=== PATIENT | female | born 1945 | race Caucasian/White ===

== ENCOUNTER 2023-01-27 06:31 | Emergency (ER) | payer BC, OTHER ==
[~2023-01-27] VITALS: Ht 165.1 cm; Wt 59.1 kg
[2023-01-27 06:36] VITALS: BP 156/77; RESP 16; O2SAT 99
[2023-01-27 07:09] VITALS: PULSE 60
[2023-01-27 07:19] LABS: Basophils # (auto) 0 10 ^3/uL (0-0.2); Basophils % (auto) 0.8 % (0.0-2.0); Eosinophils # (auto) 0.1 10 ^3/uL (0-0.8); Eosinophils % (auto) 3.2 % (0.0-7.0); Hematocrit 32.1 % (36.0-46.0); Hemoglobin 10.3 g/dL (12.2-16.2); Lymphocytes # (auto) 1.1 10 ^3/uL (0.4-5.4); Lymphocytes % (auto) 27.8 % (10.0-50.0); Mean Corpuscular Hemoglobin 28.4 pg (28.0-32.0); Mean Corpuscular Hgb Conc. 32.2 g/dL (32.0-36.0); Mean Corpuscular Volume 88.3 fL (80.0-100.0); Monocytes # (auto) 0.4 10 ^3/uL (0-1.3); Monocytes % (auto) 10.6 % (0.0-12.0); Neutrophils # (auto) 2.3 10 ^3/uL (1.6-8.6); Neutrophils % (auto) 57.6 % (37.0-80.0); Nucleated Red Blood Cells % 0.1 %; Red Blood Cells 3.64 10^6/uL (4.0-5.20); Red Cell Distribution Width 14.2 % (11.8-14.3); White Blood Cell 4.1 10^3/uL (4.4-10.8)
[2023-01-27 07:20] LABS: INR 1.08 (0.9-1.15); Partial Thromboplastin Time 26.8 SEC (24.5-34.5); Prothrombin Time 11.3 sec (9.3-11.8)
[2023-01-27 07:26] LABS: Alanine Aminotransferase 39 U/L (7-40); Albumin 3.6 g/dL (3.2-4.8); Alkaline Phosphatase 150 U/L (46-116); Anion Gap 6 (5-15); Aspartate Aminotransferase 35 U/L (13-40); Blood Urea Nitrogen 24 mg/dL (9-23); Calcium 8.5 mg/dL (8.7-10.4); Carbon Dioxide 24 mmol/L (20-30); Chloride 111 mmol/L (98-107); Glucose 85 mg/dL (74-106); Sodium 141 mmol/L (136-145)
[2023-01-27 07:27] LABS: Bilirubin, Total 1.1 mg/dL (0.2-1.0); Total Protein 5.8 g/dL (5.7-8.2)
== END 2023-01-27 08:38 | disposition left against medical advice (07) ==
LOC: ER 06:31 → EDBD 06:31 → ER 08:38
DX: R07.89 Other chest pain (principal); Z79.899 Other long term (current) drug therapy
CPT/HCPCS: 36415; 71045; 80053; 83690; 83735; 83880; 84484; 85025; 85610; 85730; 93005

== ENCOUNTER 2024-05-07 17:51 | Emergency (ER) | payer BC, OTHER ==
[~2024-05-07] VITALS: Ht 152.4 cm; Wt 68.1 kg
--- NOTE | 2024-05-07 18:07 | ECG ---
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
--- NOTE | 2024-05-07 18:48 | ED.PDOC ---
History of Present Illness HPI Comments 78 y/o F, with a Hx of dementia, is BIBA for c/o chest pain and nausea and vomiting, today. Per EMS report, patient is A&Ox1 at baseline and is reported by , who called, on patient, suddenly, experiencing chest pain and having 1x episode of vomiting, while eating dinner, at [employer]. Patient has no reported abdominal pain, hematemesis, fever, chills, or other associated symptoms or modifiers at this time. Chief Complaint: Chest Pain Time Seen by MD: 18:05 Primary Care Provider: UNKNOWN Reviewed Notes: Nurses Notes, Medications, Allergies Allergies: Coded Allergies: NO KNOWN ALLERGIES (Unverified , 01/27/23) Information Source: Emergency Med Personnel Mode of Arrival: EMS Severity: Moderate Timing: Hours Duration: Since onset Prehospital treatment: 12 Lead EKG, Bean Snipper Past Medical History PAST MEDICAL HISTORY: Dementia Surgical History: Unknown, Unobtainable ROTARY DRIER FEEDER History: Denies all ROTARY DRIER FEEDER Hx, Unknown, Unobtainable Family History Family History: Unknown, Unobtainable Social History Smoker: Unknown, Unobtainable Alcohol: Unknown, Unobtainable Drugs: Unknown, Unobtainable Lives In: Home, Assisted Care Cardiovascular: reports: chest pain Gastrointestinal: reports: nausea, vomiting All Other Systems: Reviewed and Negative (negative unless otherwise stated above or in HPI) Physical Exam General Appearance: No Apparent Distress, Normal HEENT: Normal ENT Inspection, Pharynx Normal, TMs Normal Neck: Full Range of Motion, Non-Tender, Normal, Normal Inspection Respiratory: Chest Non-Tender, Lungs Clear, No Accessory Muscle Use, No Respiratory Distress, Normal Breath Sounds Cardiovascular: No Edema, No JVD, No Murmur, No Gallop, Normal Peripheral Pulses, Regular Rate/Rhythm Breast Exam: Deferred Gastrointestinal: No Organomegaly, Non Tender, No Pulsatile Mass, Normal Bowel Sounds, Soft Genitalia: Deferred Pelvic: Deferred Rectal: Deferred Extremities: No calf tenderness, Normal capillary refill, Normal inspection, Normal range of motion, Non-tender, No pedal edema Musculoskeletal : Apperance: Normal Neurologic: Alert, test and turn up technician II-XII nml as Tested, No Motor Deficits, Normal Affect, Normal Mood, No Sensory Deficits, Other (patient is a demented at baseline ) Cerebellar Function: Normal Reflexes: Normal Skin: Dry, Normal Color, Warm Lymphatic: No Adenopathy Was a procedure done? Was a procedure done?: No EKG EKG : Pulse Rate (adult): 77 Brogan: Normal Cardiac Rhythm: NSR Block: None Hypertrophy: None ST: Normal Differential Dx Considerations may include: IN, ACS, PE, viral syndrome, gastritis, gastroenteritis, angina, musculoskeletal pain X-Ray, Labs, Meds, VS Vital Signs Date Time Temp Pulse Resp B/P (MAP) Pulse Ox O2 Delivery O2 Flow Rate FiO2 05/07/24 18:48 77 05/07/24 18:00 77 05/07/24 17:58 97.8 74 15 145/75 (98) 99 Lab Test 05/07/24 19:40 05/07/24 18:48 Range/Units Troponin I High Sensitivity 8 8 </=34 ng/L White Blood Count 5.2 4.4-10.8 10^3/uL Red Blood Count 3.80 L 4.0-5.20 10^6/uL Hemoglobin 10.7 L 12.2-16.2 g/dL Hematocrit 33.5 L 36.0-46.0 % Mean Corpuscular Volume 88.3 80.0-100.0 fL Mean Corpuscular Hemoglobin 28.2 28.0-32.0 pg Mean Corpuscular Hemoglobin Concent 31.9 L 32.0-36.0 g/dL Red Cell Distribution Width 15.8 H 11.8-14.3 % Platelet Count 314 140-450 10^3/uL Mean Platelet Volume 8.9 6.9-10.8 fL Neutrophils (%) (Auto) 64.7 37.0-80.0 % Lymphocytes (%) (Auto) 21.4 10.0-50.0 % Monocytes (%) (Auto) 9.6 0.0-12.0 % Eosinophils (%) (Auto) 3.6 0.0-7.0 % Basophils (%) (Auto) 0.7 0.0-2.0 % Neutrophils # (Auto) 3.4 1.6-8.6 10 ^3/uL Lymphocytes # (Auto) 1.1 0.4-5.4 10 ^3/uL Monocytes # (Auto) 0.5 0-1.3 10 ^3/uL Eosinophils # (Auto) 0.2 0-0.8 10 ^3/uL Basophils # (Auto) 0 0-0.2 10 ^3/uL Nucleated Red Blood Cells 0.1 % Sodium Level 138 136-145 mmol/L Potassium Level 4.0 3.5-5.1 mmol/L Chloride Level 106 98-107 mmol/L Carbon Dioxide Level 26 20-31 mmol/L Anion Gap 6 5-15 Blood Urea Nitrogen 23 9-23 mg/dL Creatinine 1.01 0.550-1.02 mg/dL Glomerular Filtration Rate Calc 58 >90 mL/min BUN/Creatinine Ratio 22.8 H 10.0-20.0 Serum Glucose 95 74-106 mg/dL Calcium Level 9.1 8.7-10.4 mg/dL Total Bilirubin 0.5 0.2-1.0 mg/dL Aspartate Amino Transferase (AST) 23 13-40 U/L Alanine Aminotransferase (ALT) 24 7-40 U/L Alkaline Phosphatase 166 H 46-116 U/L Total Protein 5.6 L 5.7-8.2 g/dL Albumin 3.2 3.2-4.8 g/dL First troponin is eight. Second troponin is eight. EKG shows no signs of ischemia. Time of 1ST Reevaluation: 18:35 Reevaluation 1ST: Unchanged Patient Education/Counseling: Diagnosis, Treatment Family Education/Counseling: No Family Present Departure 1 Departure Time of Disposition: 20:57 Impression: Primary Impression: Non-cardiac chest pain Disposition: 01 HOME / SELF CARE / HOMELESS Condition: Stable Additional Instructions: Reassessed patient, vital signs stable. Denies any new symptoms. Patient is able to tolerate PO and ambulate/be mobile at their baseline without concern. Risks and benefits of all medications given or prescribed, if any, discussed. All lab work, imaging and diagnostic studies were reviewed by me. The patient was counseled extensively on my clinical impression, diagnosis, expected course of the disease, and plan, including their follow-up care. Will discharge patient. Patient instructed to follow up with Primary Care Physician within 24-48 hours for Cardiology referral. Strict return precautions given for further exacerbation of symptoms or for new symptoms. The patient was given the opportunity to ask questions and all questions were answered by myself and the nursing/tech staff. Patient is in agreement with the care plan. The patient verbally expressed understanding of the discharge instructions, including the reasons to return to the Emergency Department. Discharged With: Self Critical Care Note Critical Care Time?: No Stability Stability form required: No Heart Score Heart Score: Heart Score Response (Comments) Value History Slightly Suspicious 0 EKG Normal 0 Age >65 2 Risk Factors No known risk factors 0 Troponin Normal limit 0 Total 2 I personally scribed for DAMASO LAYTON MD ([email or web address]) on 05/07/24 at 18:48. Electronically submitted by James Mtz [email or web address]). DAMASO LAYTON MD May 07, 2024 18:48
[2024-05-07 19:03] LABS: Basophils # (auto) 0 10 ^3/uL (0-0.2); Basophils % (auto) 0.7 % (0.0-2.0); Eosinophils # (auto) 0.2 10 ^3/uL (0-0.8); Eosinophils % (auto) 3.6 % (0.0-7.0); Hematocrit 33.5 % (36.0-46.0); Hemoglobin 10.7 g/dL (12.2-16.2); Lymphocytes # (auto) 1.1 10 ^3/uL (0.4-5.4); Lymphocytes % (auto) 21.4 % (10.0-50.0); Mean Corpuscular Hemoglobin 28.2 pg (28.0-32.0); Mean Corpuscular Hgb Conc. 31.9 g/dL (32.0-36.0); Mean Corpuscular Volume 88.3 fL (80.0-100.0); Monocytes # (auto) 0.5 10 ^3/uL (0-1.3); Monocytes % (auto) 9.6 % (0.0-12.0); Neutrophils # (auto) 3.4 10 ^3/uL (1.6-8.6); Neutrophils % (auto) 64.7 % (37.0-80.0); Nucleated Red Blood Cells % 0.1 %; Platelet Count (auto) 314 10^3/uL (140-450); Red Cell Distribution Width 15.8 % (11.8-14.3); White Blood Cell 5.2 10^3/uL (4.4-10.8)
[2024-05-07 19:30] LABS: Alanine Aminotransferase 24 U/L (7-40); Anion Gap 6 (5-15); Aspartate Aminotransferase 23 U/L (13-40); BUN/Creatinine Ratio 22.8 (10.0-20.0); Bilirubin, Total 0.5 mg/dL (0.2-1.0); Blood Urea Nitrogen 23 mg/dL (9-23); Calcium 9.1 mg/dL (8.7-10.4); Carbon Dioxide 26 mmol/L (20-31); Chloride 106 mmol/L (98-107); Glucose 95 mg/dL (74-106); Sodium 138 mmol/L (136-145)
[2024-05-07 19:31] LABS: Albumin 3.2 g/dL (3.2-4.8); Alkaline Phosphatase 166 U/L (46-116); Total Protein 5.6 g/dL (5.7-8.2)
[2024-05-07 22:00] VITALS: BP 119/75; TEMP 98.3
[2024-05-07 22:15] VITALS: PULSE 93; RESP 18; O2SAT 97
== END 2024-05-07 22:16 | disposition home or self-care (01) ==
LOC: EDBD 17:51 → EDUNIT# 17:51 → ER 17:55
DX: R07.89 Other chest pain (principal)
CPT/HCPCS: 36415; 80053; 84484; 85025; 93005

== ENCOUNTER 2024-06-04 16:51 | Inpatient (IN) | payer OTHER ==
[~2024-06-04] VITALS: Ht 170.2 cm; Wt 69.3 kg
--- NOTE | 2024-06-04 18:39 | DVH ---
CLINICAL INDICATION: FALL TECHNIQUE: 1 radiographic views of the pelvis were obtained. Comparison: None FINDINGS/IMPRESSION: There is no evidence of acute fracture or dislocation. The visualized joint space is well maintained. The alignment is anatomical. There is no radiopaque foreign body. HS:Y
--- NOTE | 2024-06-04 18:40 | DVH ---
CLINICAL INDICATION: FALL TECHNIQUE: 4 radiographic views of the right femur were obtained. Comparison: None FINDINGS/IMPRESSION: There is a comminuted fracture of the distal femur with minimal displacement The visualized joint space is well maintained. The alignment is anatomical. There is no radiopaque foreign body. HS:Y
[2024-06-04 19:53] LABS: Basophils # (auto) 0 10 ^3/uL (0-0.2); Basophils % (auto) 0.2 % (0.0-2.0); Eosinophils # (auto) 0 10 ^3/uL (0-0.8); Eosinophils % (auto) 0.1 % (0.0-7.0); Hemoglobin 9.6 g/dL (12.2-16.2); Lymphocytes # (auto) 0.6 10 ^3/uL (0.4-5.4); Lymphocytes % (auto) 6.4 % (10.0-50.0); Mean Corpuscular Hemoglobin 28.7 pg (28.0-32.0); Mean Corpuscular Hgb Conc. 32.9 g/dL (32.0-36.0); Mean Corpuscular Volume 87.3 fL (80.0-100.0); Monocytes # (auto) 0.7 10 ^3/uL (0-1.3); Monocytes % (auto) 6.5 % (0.0-12.0); Neutrophils # (auto) 8.8 10 ^3/uL (1.6-8.6); Neutrophils % (auto) 86.8 % (37.0-80.0); Platelet Count (auto) 282 10^3/uL (140-450); Red Blood Cells 3.33 10^6/uL (4.0-5.20); Red Cell Distribution Width 15.5 % (11.8-14.3); White Blood Cell 10.1 10^3/uL (4.4-10.8)
--- NOTE | 2024-06-04 19:54 | ED.PDOC ---
History of Present Illness HPI Comments 78 y/o F, with a history of CVA and dementia, is BIBA for c/o right hip and leg pain s/p mechanical fall and injury, today. Per EMS report, patient is stated to have injured herself after tripping, while walking at a [employer] restaurant, earlier, today. She is stated to have not sustained any additional injuries or LOC then. At time of initial assessment, further history cannot be obtained, due to patient having dementia and insecticide expert/family historians being absent. Chief Complaint: Fall Injury Time Seen by MD: 19:30 Primary Care Provider: ? Reviewed Notes: Nurses Notes, Fibrous Plasterer Notes, Medications, Allergies Allergies: Coded Allergies: NO KNOWN ALLERGIES (Unverified , 01/27/23) Information Source: Emergency Med Personnel Mode of Arrival: EMS Severity: Moderate Timing: Hours Duration: Since onset Prehospital treatment: 12 Lead EKG, Internal Medicine Doctor Past Medical History PAST MEDICAL HISTORY: CVA, Dementia Surgical History: Denies all surgeries PROFESSOR OF BUSINESS History: Denies all PROFESSOR OF BUSINESS Hx Family History Family History: Unknown, Unobtainable Social History Smoker: Non-Smoker Alcohol: Denies ETOH Use Drugs: Denies Drug Use Lives In: Home, Assisted Care Musculoskeletal: reports: others (right-hip and leg pain ) All Other Systems: Reviewed and Negative (negative unless otherwise stated above in HPI) Physical Exam General Appearance: No Apparent Distress, Normal HEENT: Normal ENT Inspection, Pharynx Normal, TMs Normal Neck: Full Range of Motion, Non-Tender, Normal, Normal Inspection Respiratory: Chest Non-Tender, Lungs Clear, No Accessory Muscle Use, No Respiratory Distress, Normal Breath Sounds Cardiovascular: No Edema, No JVD, No Murmur, No Gallop, Normal Peripheral Pulses, Regular Rate/Rhythm Breast Exam: Deferred Gastrointestinal: No Organomegaly, Non Tender, No Pulsatile Mass, Normal Bowel Sounds, Soft Genitalia: Deferred Pelvic: Deferred Rectal: Deferred Extremities: No calf tenderness, Normal capillary refill, Normal inspection, Normal range of motion, No pedal edema, Tender (rigth lower extremity tenderness ) Musculoskeletal : Apperance: Normal Neurologic: Alert, forgeman helper II-XII nml as Tested, No Motor Deficits, Normal Affect, Normal Mood, No Sensory Deficits Cerebellar Function: Normal Reflexes: Normal Skin: Dry, Normal Color, Warm Lymphatic: No Adenopathy Was a procedure done? Was a procedure done?: No Sedation Informed consent obtained: No Differential Dx Considerations may include: fractures, dislocations, contusions, bruising X-Ray, Labs, Meds, VS Vital Signs Date Time Temp Pulse Resp B/P (MAP) Pulse Ox O2 Delivery O2 Flow Rate FiO2 06/04/24 20:10 89 21 99 Room Air* 0 21 06/04/24 20:10 98.0 89 21 174/60 (98) 99 98.0 06/04/24 17:10 97.7 87 20 170/82 (111) 100 Lab Test 06/04/24 19:45 Range/Units White Blood Count 10.1 4.4-10.8 10^3/uL Red Blood Count 3.33 L 4.0-5.20 10^6/uL Hemoglobin 9.6 L 12.2-16.2 g/dL Hematocrit 29.0 L 36.0-46.0 % Mean Corpuscular Volume 87.3 80.0-100.0 fL Mean Corpuscular Hemoglobin 28.7 28.0-32.0 pg Mean Corpuscular Hemoglobin Concent 32.9 32.0-36.0 g/dL Red Cell Distribution Width 15.5 H 11.8-14.3 % Platelet Count 282 140-450 10^3/uL Mean Platelet Volume 8.6 6.9-10.8 fL Neutrophils (%) (Auto) 86.8 H 37.0-80.0 % Lymphocytes (%) (Auto) 6.4 L 10.0-50.0 % Monocytes (%) (Auto) 6.5 0.0-12.0 % Eosinophils (%) (Auto) 0.1 0.0-7.0 % Basophils (%) (Auto) 0.2 0.0-2.0 % Neutrophils # (Auto) 8.8 H 1.6-8.6 10 ^3/uL Lymphocytes # (Auto) 0.6 0.4-5.4 10 ^3/uL Monocytes # (Auto) 0.7 0-1.3 10 ^3/uL Eosinophils # (Auto) 0 0-0.8 10 ^3/uL Basophils # (Auto) 0 0-0.2 10 ^3/uL Nucleated Red Blood Cells 0.0 % Sodium Level 137 136-145 mmol/L Potassium Level 3.5 3.5-5.1 mmol/L Chloride Level 105 98-107 mmol/L Carbon Dioxide Level 19 L 20-31 mmol/L Anion Gap 13 5-15 Blood Urea Nitrogen 27 H 9-23 mg/dL Creatinine 0.90 0.550-1.02 mg/dL Glomerular Filtration Rate Calc 66 >90 mL/min BUN/Creatinine Ratio 30.0 H 10.0-20.0 Serum Glucose 102 74-106 mg/dL Calcium Level 8.4 L 8.7-10.4 mg/dL Current Medications Medications (Trade) Dose Ordered Sig/Jude Route Start Time Stop Time Status Last Admin Morphine Sulfate 4 mg ONCE ONCE IV 06/04/24 19:45 06/04/24 19:46 DC 06/04/24 22:45 Sodium Chloride 1,000 ml @ 1,000 mls/hr Q1H ONCE IV 06/04/24 19:45 06/04/24 20:44 DC 06/04/24 22:52 Ondansetron HCl (Zofran) 4 mg ONCE ONCE IV 06/04/24 19:45 06/04/24 19:46 DC 06/04/24 22:44 Hydralazine HCl (Apresoline Injection) 10 mg ONCE ONCE IV 06/04/24 22:00 06/04/24 22:01 DC 06/04/24 22:45 [place] [address] Ph: [phone] DIAGNOSTIC IMAGING Diagnostic Imaging Report : [id number] Signed PATIENT: ENEIDA MACEDO ACCT: [id number] UNIT: [id number] : 1945 LOC: ER ROOM / BED: / AGE / SEX: 78 / F ADM STATUS: REG ER SERVICE 1801 ORDERING PHYSICIAN: AMANDA JACKSON MD PROCEDURE(s): PELVS - PELVIS AP REASON: FALL ORDER NUMBER(s): [id number], ACCESSION NUMBER(s): [id number] CLINICAL INDICATION: FALL TECHNIQUE: 1 radiographic views of the pelvis were obtained. Comparison: None FINDINGS/IMPRESSION: There is no evidence of acute fracture or dislocation. The visualized joint space is well maintained. The alignment is anatomical. There is no radiopaque foreign body. HS:Y ATED BY: LYNETTE TYSON Jr., DO DICTATED DATE/TIME: 06/04/241835 SIGNED BY: LYNETTE TYSON Jr., DO SIGNED DATE/TIME: 06/04/241835 CC: [place] [id number] Ph: [phone] DIAGNOSTIC IMAGING Diagnostic Imaging Report : [id number] Signed PATIENT: ENEDIA MACEDO ACCT: [id number] UNIT: [id number] : 1945 LOC: ER ROOM / BED: / AGE / SEX: 78 / F ADM STATUS: REG ER SERVICE 00 ORDERING PHYSICIAN: AMANDA JACKSON MD PROCEDURE(s): RFEM - R FEMUR XRAY REASON: FALL ORDER NUMBER(s): [id number], ACCESSION NUMBER(s): [id number] CLINICAL INDICATION: FALL TECHNIQUE: 4 radiographic views of the right femur were obtained. Comparison: None FINDINGS/IMPRESSION: There is a comminuted fracture of the distal femur with minimal displacement The visualized joint space is well maintained. The alignment is anatomical. There is no radiopaque foreign body. HS:Y ATED BY: LYNETTE TYSON Jr., DO DICTATED DATE/TIME: 06/04/241836 SIGNED BY: LYNETTE TYSON Jr., DO SIGNED DATE/TIME: 06/04/241836 CC: [place] [id number] Ph: [phone] DIAGNOSTIC IMAGING Diagnostic Imaging Report : [id number] Signed PATIENT: ENEIDA MACEDO ACCT: [id number] UNIT: [id number] : 1945 LOC: ER ROOM / BED: / AGE / SEX: 78 / F ADM STATUS: REG ER SERVICE 34 ORDERING PHYSICIAN: DAISY AYERS MD PROCEDURE(s): CXRP - CHEST PORTABLE REASON: fall ORDER NUMBER(s): [id number], ACCESSION NUMBER(s): [id number] CHEST RADIOGRAPH Indication: fall Technique: Single frontal view of the chest was obtained COMPARISON: XY CHEST PORTABLE on DOS: 01/27/23 FINDINGS: Lines and Tubes: None Lungs: Clear Pleura: No effusion. No pneumothorax. Cardiomediastinal contours: Unremarkable IMPRESSION: No acute abnormality identified. No significant change compared to the prior chest x-ray from January 2023. ATED BY: DAR FLOREZ MD DICTATED DATE/TIME: 06/04/242119 SIGNED BY: DAR FLOREZ MD SIGNED DATE/TIME: 06/04/242119 CC: [place] [id number] Ph: [phone] DIAGNOSTIC IMAGING Diagnostic Imaging Report : [id number] Signed PATIENT: ENEIDA MACEDO ACCT: [id number] UNIT: [id number] : 1945 LOC: OVERFLOW ROOM / BED: [facility] / A AGE / SEX: 78 / F ADM STATUS: ADM IN SERVICE 55 ORDERING PHYSICIAN: ALONSO SYED RESIDENT PROCEDURE(s): HWOCT - HEAD WITHOUT CONTRAST REASON: Mechanical fall ORDER NUMBER(s): [id number], ACCESSION NUMBER(s): [id number] CT HEAD WITHOUT CONTRAST INDICATION: Mechanical fall COMPARISON: None TECHNIQUE: CT of the head without intravenous contrast. RADIATION DOSE: CTDIvol: mGy, DLP: mGy*cm FINDINGS: There is no evidence of intracranial hemorrhage, acute infarct, extra-axial collection, mass effect, midline shift, herniation or hydrocephalus. Mild chronic white matter microvascular ischemic changes. Moderate ventricular and sulcal enlargement related to advanced cerebral volume loss. Visualized paranasal sinuses and mastoid air cells are clear. Soft tissues and osseous structures are unremarkable. IMPRESSION: No hemorrhage or other acute intracranial abnormality. Microvascular ischemic changes and advanced cerebral volume loss. ATED BY: DAR FLOREZ MD DICTATED DATE/TIME: 06/04/242238 SIGNED BY: DAR FLOREZ MD SIGNED DATE/TIME: 06/04/242238 CC: Time of 1ST Reevaluation: 20:00 Reevaluation 1ST: Unchanged Patient Education/Counseling: Other (patient has dementia ) Family Education/Counseling: No Family Present Departure 1 Departure Time of Disposition: 06:05 (Patient's right femur fracture. We will admit patient for further workup and expert consultation) Impression: Primary Impression: Right femoral shaft fracture Qualified Codes: S72.354A - Nondisplaced comminuted fracture of shaft of right femur, initial encounter for closed fracture Disposition: ADMITTED INPATIENT Admit to: Med Surg Condition: Serious Critical Care Note Critical Care Time?: No Stability Stability form required: No Heart Score Heart Score: Heart Score Response (Comments) Value History N/A 0 EKG N/A 0 Age N/A 0 Risk Factors N/A 0 Troponin N/A 0 Total 0 I personally scribed for DAISY AYERS MD ([email or web address]) on 06/04/24 at 19:54. Electronically submitted by James Mtz [email or web address]). I personally scribed for DAISY AYERS MD ([email or web address]) on 06/05/24 at 05:31. Electronically submitted by James Mtz [email or web address]). DAISY AYERS MD Jun 04, 2024 19:54
[2024-06-04 19:59] LABS: Chloride 105 mmol/L (98-107); Potassium 3.5 mmol/L (3.5-5.1); Sodium 137 mmol/L (136-145)
[2024-06-04 20:00] LABS: Anion Gap 13 (5-15)
[2024-06-04 20:05] LABS: Glucose 102 mg/dL (74-106)
[2024-06-04 20:07] LABS: Blood Urea Nitrogen 27 mg/dL (9-23); Calcium 8.4 mg/dL (8.7-10.4); Carbon Dioxide 19 mmol/L (20-31)
[2024-06-04 20:10] VITALS: PULSE 89; RESP 21; O2SAT 99
--- NOTE | 2024-06-04 21:23 | DVH ---
CHEST RADIOGRAPH Indication: fall Technique: Single frontal view of the chest was obtained COMPARISON: XY CHEST PORTABLE on DOS: 01/27/23 FINDINGS: Lines and Tubes: None Lungs: Clear Pleura: No effusion. No pneumothorax. Cardiomediastinal contours: Unremarkable IMPRESSION: No acute abnormality identified. No significant change compared to the prior chest x-ray from January 2023.
--- NOTE | 2024-06-04 22:11 | DVHHPRES ---
History of Present Illness Resident Creating Document: ALONSO SYED RESIDENT History of Present Illness Xena Lyle is 78 years old female with severe dementia, CVA, aphasia presented to the ED by EMS after mechanical fall without LOC today. Patient is altered due to dementia which is her baseline so history obtained from the her daughter from phone, per her daughter today patient and patient's went to a restaurant, she tripped and fell and did not hit her head and no loss of consciousness, patient unable to get off and crying with the pain right hip, called EMS. Daughter denies recent fever, vomiting, diarrhea, chest pain, diaphoresis, syncope and other acute associated symptoms. PMH: CVA, aphasia, dementia, anemia PSH: Gastric bypass Family history: Noncontributory Social history: Lives with family. Former smoker stopped 30 years ago, no active smoking, alcohol and other drug abuse Allergies: No known allergies Home medications: Multivitamin tablets Review of Systems Review of Systems Unable to obtain ROS due to patient's clinical status Allergies: Coded Allergies: NO KNOWN ALLERGIES (Unverified , 01/27/23) Medications Current Medications Medications Dose Ordered Sig/Jude Route Start Time Stop Time Status Last Admin Dose Admin Sodium Chloride 10 ml Q8HR IV 06/05/24 06:00 UNV Sodium Chloride 1,000 ml @ 60 mls/hr [id number] IV 06/04/24 22:15 UNV Enoxaparin Sodium 40 mg DAILY SC 06/05/24 10:00 UNV Acetaminophen 650 mg Q6HP PRN PO 06/04/24 22:15 UNV Morphine Sulfate 2 mg Q4HPRN PRN IV 06/04/24 22:15 UNV Nitroglycerin 0.4 mg Q5MINP PRN SL 06/04/24 22:15 UNV Morphine Sulfate 2 mg Q30M PRN IV 06/04/24 22:15 UNV Exam Vital Signs Vital Signs Date Time Temp Pulse Resp B/P (MAP) Pulse Ox O2 Delivery O2 Flow Rate FiO2 06/04/24 17:10 97.7 87 20 170/82 (111) 100 Exam Pt is lying on bed General Appearance: Confused, aphasic, mild distress HEENT: Atraumatic, Mucous membranes moist/pink Respiratory: Clear to auscultation, Normal air movement Cardiovascular: Regular rate, Normal S1, Normal S2, No murmurs Abdominal: Active bowel sounds, Soft, no distention, no tenderness Extremities: Right lower extremity shortened, tender at hip joint to movements, no edema Skin: No Significant rash, except past surgical scars Neuro: Normal speech, sensorimotor deficits none Psych/Mental Status: Mental status NL, Mood NL Nurse was there as sharperone during examination Labs/Xrays Labs Test 06/04/24 19:45 Range/Units White Blood Count 10.1 4.4-10.8 10^3/uL Red Blood Count 3.33 L 4.0-5.20 10^6/uL Hemoglobin 9.6 L 12.2-16.2 g/dL Hematocrit 29.0 L 36.0-46.0 % Mean Corpuscular Volume 87.3 80.0-100.0 fL Mean Corpuscular Hemoglobin 28.7 28.0-32.0 pg Mean Corpuscular Hemoglobin Concent 32.9 32.0-36.0 g/dL Red Cell Distribution Width 15.5 H 11.8-14.3 % Platelet Count 282 140-450 10^3/uL Mean Platelet Volume 8.6 6.9-10.8 fL Neutrophils (%) (Auto) 86.8 H 37.0-80.0 % Lymphocytes (%) (Auto) 6.4 L 10.0-50.0 % Monocytes (%) (Auto) 6.5 0.0-12.0 % Eosinophils (%) (Auto) 0.1 0.0-7.0 % Basophils (%) (Auto) 0.2 0.0-2.0 % Neutrophils # (Auto) 8.8 H 1.6-8.6 10 ^3/uL Lymphocytes # (Auto) 0.6 0.4-5.4 10 ^3/uL Monocytes # (Auto) 0.7 0-1.3 10 ^3/uL Eosinophils # (Auto) 0 0-0.8 10 ^3/uL Basophils # (Auto) 0 0-0.2 10 ^3/uL Nucleated Red Blood Cells 0.0 % Sodium Level 137 136-145 mmol/L Potassium Level 3.5 3.5-5.1 mmol/L Chloride Level 105 98-107 mmol/L Carbon Dioxide Level 19 L 20-31 mmol/L Anion Gap 13 5-15 Blood Urea Nitrogen 27 H 9-23 mg/dL Creatinine 0.90 0.550-1.02 mg/dL Glomerular Filtration Rate Calc 66 >90 mL/min BUN/Creatinine Ratio 30.0 H 10.0-20.0 Serum Glucose 102 74-106 mg/dL Calcium Level 8.4 L 8.7-10.4 mg/dL Assessment/Plan Assessment/Plan # mechanical fall without LOC # H/o CVA # H/o dementia sequela from CVA # 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 -ordered head CT, showed chronic microvascular changes -measures to avoid delirium -pain management as needed # Right distal femur comminuted fracture minimal displacement -evident on femur x-ray -consulted orthopedic -physical therapy and pain management # Acute complicated UTI - evident on urinalysis - ordered urine bacterial culture - currently giving Rocephin # Hypokalemia - Repleting - Monitor lab # chronic normocytic, normochromic anemia -monitor lab for now Protonix Lovenox NPO Goals of care discussed with the patient's family for more than 29 minutes: Full code status Case discussed with Dr. Gaston, patient and nurse Plan discussed with: Daughter My Orders Orders - ALONSO SYED RESIDENT Procedure Category Date Status Time Head Without Contrast CT 06/04/24 Logged 21:56 Admit ADMIT 06/04/24 Transmitted 22:03 Allergies ADELINE 06/04/24 In Process 22:03 Code Status CODE 06/04/24 Transmitted 22:03 Sodium Chloride Lock PHA 06/05/24 Logged (Saline Lock Ns) 06:00 Sodium Chloride 0.9% PHA 06/04/24 Logged 22:15 Enoxaparin Sodium PHA 06/05/24 Logged (Lovenox) 10:00 Complete Blood Count LAB 06/05/24 Verified 04:00 Comprehensive LAB 06/05/24 Verified Metabolic Panel 04:00 Npo (Nothing By DIET 06/05/24 Transmitted Mouth) Diet Breakfast Condition: Fair ADELINE 06/04/24 In Process 22:03 Acetaminophen Tablet PHA 06/04/24 Logged (Tylenol Tablet) 22:15 Morphine Sulfate PHA 06/04/24 Logged Injection 22:15 Nitroglycerin PHA 06/04/24 Logged Sublingual (Ntrostat 22:15 Morphine Sulfate PHA 06/04/24 Logged Injection 22:15 Oxygen By Nasal RT 06/04/24 Transmitted Cannula 22:03 Stat Ekg For Chest ADELINE 06/04/24 In Process Pain 22:03 Notify Md Of Changes ADELINE 06/04/24 In Process From Base 22:03 Hepatic Panel LAB 06/04/24 Logged 22:03 B-Type Natriuretic LAB 06/04/24 Logged Peptide 22:03 Ammonia LAB 06/04/24 Logged 22:03 Blood Alcohol LAB 06/04/24 Logged 22:03 Comprehensive LAB 06/04/24 Logged Metabolic Panel 22:03 Covid19 Antigen Andra LAB 06/04/24 Logged Drug Screen LAB 06/04/24 Logged 22:03 Hemoglobin A1c LAB 06/04/24 Logged 22:03 Lactic Acid W/ Reflex LAB 06/04/24 Logged Order 22:03 Magnesium LAB 06/04/24 Logged 22:03 PTPTT LAB 06/04/24 Logged 22:03 Rapid Influenza A&B LAB 06/04/24 Logged 22:03 Thyroid Stimulating LAB 06/04/24 Logged Hormone 22:03 Urinalysis LAB 06/04/24 Logged 22:03 Pt Request For Service PT 06/04/24 Logged 22:03 * Orthopedic Consult CONS 06/04/24 Transmitted 22:03 Pantoprazole PHA 06/05/24 Transmitted (Protonix) 10:00 Date of Service: Jun 04, 2024 Billing Provider: MARIELY GASTON MD Common Visit Codes: [id number] INP/OBS CARE (HIGH) Secondary Visit Codes: [id number] CARE PLAN 30 MINUTES YAHAIRALANDONDAMON RESIDENT Jun 04, 2024 22:11 MARIELY GASTON MD Jun 05, 2024 10:33
[2024-06-04] MEDS ORDERED: MORPHINE SULFATE INJ 2 MG/ml SYRG IV PRN (22:15)
[2024-06-04] MEDS ORDERED: ACETAMINOPHEN 325 MG TAB PO PRN (22:15)
[2024-06-04] MEDS ORDERED: NITROGLYCERIN 0.4 MG SL TAB SL PRN (22:15)
--- NOTE | 2024-06-04 22:42 | DVH ---
CT HEAD WITHOUT CONTRAST INDICATION: Mechanical fall COMPARISON: None TECHNIQUE: CT of the head without intravenous contrast. RADIATION DOSE: CTDIvol: mGy, DLP: mGy*cm FINDINGS: There is no evidence of intracranial hemorrhage, acute infarct, extra-axial collection, mass effect, midline shift, herniation or hydrocephalus. Mild chronic white matter microvascular ischemic changes . Moderate ventricular and sulcal enlargement related to advanced cerebral volume loss. Visualized pa ranasal sinuses and mastoid air cells are clear. Soft tissues and osseous structures are unremarkabl e. IMPRESSION: No hemorrhage or other acute intracranial abnormality. Microvascular ischemic changes and advanced ce rebral volume loss.
[2024-06-04] MEDS: ONDANSETRON HCL 4 MG/2 ML VIAL IV ONE (22:44)
[2024-06-04] MEDS: hydrALAZINE HCL 20 MG/ML VL IV ONE (22:45)
[2024-06-04] MEDS: MORPHINE SULFATE 4 MG/ML SYR/VIAL IV ONE (22:45)
[2024-06-04] MEDS: SODIUM CHLORIDE 0.9% 1,000 ML IV SCH (22:52)
[2024-06-04] MEDS: SODIUM CHLORIDE 0.9% 1,000 ML IV ONE (22:52)
[2024-06-04 22:55] LABS: INR 1.04 (0.9-1.15)
[2024-06-04 22:56] LABS: Alanine Aminotransferase 22 U/L (7-40); Albumin 3.3 g/dL (3.2-4.8); Anion Gap 11 (5-15); Aspartate Aminotransferase 21 U/L (13-40); BUN/Creatinine Ratio 29.9 (10.0-20.0); Carbon Dioxide 21 mmol/L (20-31); Chloride 105 mmol/L (98-107); Glucose 104 mg/dL (74-106); Magnesium 1.9 mg/dL (1.6-2.6); Sodium 137 mmol/L (136-145); Total Protein 5.8 g/dL (5.7-8.2)
[2024-06-04 22:57] LABS: Bilirubin, Total 0.8 mg/dL (0.2-1.0)
[2024-06-04 23:02] LABS: Alkaline Phosphatase 146 U/L (46-116); Bilirubin, Direct 0.4 mg/dL (<0.3); Blood Urea Nitrogen 26 mg/dL (9-23); Calcium 8.4 mg/dL (8.7-10.4)
[2024-06-04 23:34] LABS: COVID19 ANTIGEN SOFIA FIA NEGATIVE (NEGATIVE); Rapid Influenza A Negative (Negative); Rapid Influenza B Negative (Negative)
[2024-06-04 23:40] LABS: Blood Alcohol < 3.0 mg/dL (<10)
[2024-06-05 00:14] LABS: Urine Bacteria MOD /hpf (None Seen); Urine Blood Negative /uL (Negative); Urine Clarity Clear (Clear); Urine Color Yellow (Yellow); Urine Hyaline Cast FEW /lpf (0 - 2); Urine Mucus FEW (None Seen); Urine Protein, UAD TRACE (Negative); Urine Specific Gravity 1.025 (1.001-1.035); Urine Squamous Epithelial Cell FEW /hpf (<5); Urine Urobilinogen Normal (Negative); Urine WBC 4 /HPF (0-5); Urine pH 5.5 (5.0-9.0)
[2024-06-05 00:17] LABS: Opiate Scree,Urine Neg (NEGATIVE)
[2024-06-05 00:26] LABS: Amphetamine Screen, Urine Neg (NEGATIVE); Barbiturate Scree,Urine Neg (NEGATIVE); Benzodiazephine Screen, Urine Neg (NEGATIVE); Cannabinoid Screen, Urine Neg (NEGATIVE); Cocaine Screen, Urine Neg (NEGATIVE); Phencyclidine Screen, Urine Neg (NEGATIVE)
[2024-06-05 01:00] VITALS: BP 144/63; PULSE 129; RESP 22; TEMP 98.7; O2SAT 90
[2024-06-05] MEDS: MORPHINE SULFATE INJ 2 MG/ml SYRG IV PRN (01:30)
[2024-06-05] MEDS: cefTRIAXone 1GM/50ML D5W 50 ML IV ONE (02:26)
[2024-06-05] MEDS: POTASSIUM CHL 20MEQ/100ML 100 ML IV SCH ×2 (02:59→07:00)
[2024-06-05 04:06] LABS: Basophils # (auto) 0 10 ^3/uL (0-0.2); Basophils % (auto) 0.3 % (0.0-2.0); Eosinophils # (auto) 0 10 ^3/uL (0-0.8); Hematocrit 27.9 % (36.0-46.0); Hemoglobin 9.1 g/dL (12.2-16.2); Lymphocytes # (auto) 0.7 10 ^3/uL (0.4-5.4); Lymphocytes % (auto) 7.7 % (10.0-50.0); Mean Corpuscular Hemoglobin 28.3 pg (28.0-32.0); Mean Corpuscular Hgb Conc. 32.6 g/dL (32.0-36.0); Mean Corpuscular Volume 86.7 fL (80.0-100.0); Monocytes # (auto) 0.8 10 ^3/uL (0-1.3); Monocytes % (auto) 8.2 % (0.0-12.0); Neutrophils # (auto) 7.8 10 ^3/uL (1.6-8.6); Neutrophils % (auto) 83.8 % (37.0-80.0); Platelet Count (auto) 277 10^3/uL (140-450); Red Blood Cells 3.22 10^6/uL (4.0-5.20); Red Cell Distribution Width 15.1 % (11.8-14.3); White Blood Cell 9.3 10^3/uL (4.4-10.8)
[2024-06-05 04:17] LABS: Alanine Aminotransferase 23 U/L (7-40); Anion Gap 10 (5-15); Aspartate Aminotransferase 20 U/L (13-40); BUN/Creatinine Ratio 33.8 (10.0-20.0); Carbon Dioxide 21 mmol/L (20-31); Glucose 102 mg/dL (74-106); Sodium 139 mmol/L (136-145)
[2024-06-05 04:18] LABS: Bilirubin, Total 0.6 mg/dL (0.2-1.0)
[2024-06-05 04:21] LABS: Albumin 3.1 g/dL (3.2-4.8); Alkaline Phosphatase 134 U/L (46-116); Blood Urea Nitrogen 24 mg/dL (9-23); Chloride 108 mmol/L (98-107); Total Protein 5.5 g/dL (5.7-8.2)
--- NOTE | 2024-06-05 05:20 | ECG ---
[facility] Test Date: 2024-06-05 Test Time: 02:16:45 Pat Name: ENEIDA MACEDO Department: ED Room: 0291T Gender: F Supervisor [place]: LUBA : 1945 Requested By: ALONSO SYED Order Number: [id number] Reading MD: Michael Merino Measurements Intervals Stella Rate: 126 P: 73 VT: 156 QRS: 50 QRSD: 86 T: 20 QT: 311 QTc: 451 Interpretive Statements Sinus tachycardia Multiple ventricular premature complexes Low voltage, precordial leads Borderline T abnormalities, inferior leads Electronically Signed On 06-10-2024 17:09:11 PST by Michael Merino Please click the below link to view image of tracing.
[2024-06-05] MEDS: ONDANSETRON HCL 4 MG/2 ML VIAL IV PRN (05:46)
[2024-06-05] MEDS: SODIUM CHLOR 0.9% PF (SALINE LOCK) 10ML VIAL/SYR IV SCH (06:00)
--- NOTE | 2024-06-05 08:31 | DVH ---
EXAM: XY R FOOT 2 VIEW XRAY CLINICAL INDICATION: right knee fracture TECHNIQUE: XY R FOOT 2 VIEW XRAY Comparison: None FINDINGS/IMPRESSION: There is no evidence of acute fracture or dislocation. The visualized joint space is well maintained. The alignment is anatomical. There is no radiopaque foreign body.
--- NOTE | 2024-06-05 09:09 | DVHPNRES ---
Progress Note Date Seen: Jun 05, 2024 Resident Creating Document: HELENA VERAS RESIDENT Medical Necessity Reason Pt with a Central, PICC or Fol: No Subjective Review of Systems Patient is a 78-year-old female with past medical history of CVA with residual aphasia, TIA, dementia who came in after sustaining a mechanical fall. Patient is AO x2 at baseline with aphasia and is unable to provide accurate history. Per patient's daughter, patient ambulates at baseline, however she has been having a shuffling gait for the last 6 months with minor falls. Yesterday she was visiting a restaurant with her when she fell down to her knees, denies any loss of consciousness, denies hitting her head.. Right femur x-ray showed a comminuted fracture of the distal femur with minimal displacement. Orthopedic surgery was consulted. Past surgical history: Cholecystectomy, gastric bypass surgery Home medications: Vitamins only Past Hospitalization: 2 weeks ago ER visit for chest pain which patient was told was noncardiac Social & Personal history: Patient lives with her . Allergies: Denies Patient seen and examined at bedside. Patient is unable to communicate effectively, review of systems could not be completed accurately. Objective vital signs Vital Sign Date Time Temp Pulse Resp B/P (MAP) Pulse Ox O2 Delivery O2 Flow Rate FiO2 06/05/24 06:17 107 19 142/60 06/05/24 06:00 98 06/05/24 00:16 97.9 97.9 06/04/24 20:10 Room Air* 0 21 Total Intake and Output 06/04/24 06/04/24 06/05/24 15:00 23:00 07:00 Intake Total 1680 ml Balance 1680 ml medications Current Medications Medications Dose Ordered Sig/Jude Route Start Time Stop Time Status Last Admin Dose Admin Sodium Chloride 10 ml Q8HR IV 06/05/24 06:00 Sodium Chloride 1,000 ml @ 60 mls/hr [id number] IV 06/04/24 22:15 06/04/24 22:52 60 MLS/HR Enoxaparin Sodium 40 mg DAILY SC 06/05/24 10:00 Acetaminophen 650 mg Q6HP PRN PO 06/04/24 22:15 Morphine Sulfate 2 mg Q4HPRN PRN IV 06/04/24 22:15 06/05/24 05:48 2 MG Nitroglycerin 0.4 mg Q5MINP PRN SL 06/04/24 22:15 Morphine Sulfate 2 mg Q30M PRN IV 06/04/24 22:15 Pantoprazole Sodium 40 mg DAILY IV 06/05/24 10:00 Ceftriaxone Sodium 50 ml @ 100 mls/hr DAILY@09 IV 06/06/24 09:00 Ondansetron HCl 4 mg Q6HPRN PRN IV 06/05/24 02:15 06/05/24 05:46 4 MG Potassium Chloride 100 ml @ 50 mls/hr Q2H IV 06/05/24 07:00 06/05/24 12:59 Examination General Appearance: Well developed. Well nourished. In moderate distress Head Exam: Normal inspection Neck Exam: Normal inspection. Non-tender. Normal alignment Pulmonary/Respiratory: Chest non-tender. Clear bilateral breath sounds, no crackles, no wheezing. Cardiovascular/Chest: Regular rate and rhythm. No murmurs. No JVD. Peripheral Pulses: 2+ Radial (R). 2+ Radial (L). 2+ Pedal (R). 2+ Pedal (L) Abdominal Exam: Normal bowel sounds. Soft. normal abdomen, no visible veins, Nontender. No hepatospenomegaly. No masses Lower extremities: Negative lower extremity edema. Patient is able to move her toes but unable to dorsiflex or plantar flex. Sensations intact. Right hip tenderness to palpation. Neuro/Mental Status: A&O x4. Coherent. Thoughts/Psych: Normal thought pattern. Appropriate mood and affect. Good judgement and insight Skin Exam: Normal inspection. Normal color. Warm. Dry laboratory and microbiology Laboratory Tests 06/05/24 03:36 Test 06/05/24 03:36 Range/Units Serum Glucose 102 74-106 mg/dL Labs and/or images reviewed: Labs reviewed by me, Image(s) reviewed by me Problem List/Assessment/Plan Problem List/Assessment/Plan S/p mechanical fall Comminuted fracture of distal femur with minimal displacement - head CT: No hemorrhage or other acute intracranial abnormality. Microvascular ischemic changes and advanced cerebral volume loss. - femur x-ray: There is a comminuted fracture of the distal femur with minimal displacement. The visualized joint space is well maintained. The alignment is anatomical. There is no radiopaque foreign body. - pelvis x-ray: There is no evidence of acute fracture or dislocation. The visualized joint space is well maintained. The alignment is anatomical. There is no radiopaque foreign body. - CXR: No acute abnormality identified. No significant change compared to the prior chest x-ray from January 2023. - foot x-ray: There is no evidence of acute fracture or dislocation. The visualized joint space is well maintained. The alignment is anatomical. There is no radiopaque foreign body. - orthopedic surgery consulted; patient will likely undergo surgery with metal zoran placement - EKG: Sinus tachycardia. Multiple ventricular premature complexes. Low voltage precordial leads. Borderline T abnormalities. - IV NS at 60 cc/hour Acute complicated UTI - IV ceftriaxone Hypokalemia - repleted Aphasia, possibly Wernicke's? Dementia - monitor PUD prophylaxis: protonix 40mg DVT prophylaxis: Levonox 40mg Goals of care: Full code, discussed with patient's daughter for >16 minutes on 06/05/[address] Dozier Plan discussed with: Patient, Daughter, Other (RN) Date of Service: Jun 05, 2024 Billing Provider: PAPITO DOZIRE MD Common Visit Codes: [id number] INP/OBS CARE(HIGH) HELENA VERAS RESIDENT Jun 05, 2024 09:09 PAPITO DOZIER MD Jun 06, 2024 16:22
[2024-06-05] MEDS: PANTOPRAZOLE 40 MG/10 ML VIAL INJ IV SCH (10:32)
[2024-06-05] MEDS: ENOXAPARIN SOD 40 MG/0.4 ML SYRINGE SC SCH (10:32)
[2024-06-05 11:03] LABS: Free T4 (Free Thyroxine) 0.84 ng/dL (0.89-1.76)
[2024-06-05 11:28] LABS: T3 Total 1.13 ng/mL (0.60-1.81)
[2024-06-05] MEDS ORDERED: MIDAZOLAM HCL 2MG/2ML 2ml VIAL (1mg/ml) ONE (11:46)
[2024-06-05] MEDS ORDERED: SODIUM CHLORIDE LOCK 10 ML ONE (11:46)
[2024-06-05] MEDS ORDERED: PROPOFOL 10 MG/ML 20 ML IV ONE (11:46)
[2024-06-05] MEDS ORDERED: LIDOCAINE 1% INJ PF 5ML AMP ONE (11:46)
[2024-06-05] MEDS ORDERED: ONDANSETRON HCL 4 MG/2 ML VIAL ONE (11:46)
[2024-06-05] MEDS ORDERED: fentaNYL CITRATE 100 MCG/2 ML VL ONE (11:46)
[2024-06-05] MEDS: Lidocaine/Epinephrine 1%-1:100,000 30ML VL ONE (12:13)
[2024-06-05] MEDS: BUPIVACAINE 0.5% MPF INJ 30ML SDV IJ ONE (12:14)
[2024-06-05] MEDS: BUPIVACAINE 0.5% P/F INJ 10 ML VIAL ONE (12:21)
[2024-06-05] MEDS ORDERED: MORPHINE SULFATE INJ 2 MG/ml SYRG IV PRN (12:30)
[2024-06-05] MEDS: KETOROLAC TROMETH 30 MG/ML 1ML VIAL IV ONE (12:30)
[2024-06-05] MEDS ORDERED: MORPHINE SULFATE 4 MG/ML SYR/VIAL IV PRN (12:30)
[2024-06-05] MEDS ORDERED: HYDROmorphone HCL 2 MG/ML VL/or syr IV PRN ×2 (12:30)
[2024-06-05] MEDS: ONDANSETRON HCL 4 MG/2 ML VIAL IV ONE (12:30)
--- NOTE | 2024-06-05 12:56 | DVH ---
CLINICAL INDICATION: Displacement, trauma TECHNIQUE: 3 radiographic views of the right knee were obtained. Comparison: None FINDINGS/IMPRESSION: Displaced fracture of the distal femur. Diffuse osteopenia.
[2024-06-05] MEDS: ceFAZolin 2 GM/D5W100ml 100 ML IV ONE (13:07)
[2024-06-05 13:59] VITALS: O2SAT 94
[2024-06-05] MEDS ORDERED: ceFAZolin 1GM/50ML 50 ML IV SCH (14:00)
--- NOTE | 2024-06-05 14:39 | DVH ---
FLUOROSCOPY TIME: 29 seconds TECHNIQUE: Intraoperative radiographs of the right femur were obtained. COMPARISON: None FINDINGS: Refer to intraoperative report for further evaluation. IMPRESSION: Refer to intraoperative report for further evaluation.
--- NOTE | 2024-06-05 14:39 | DVH ---
FLUOROSCOPY TIME: 29 seconds TECHNIQUE: Intraoperative radiographs of the right femur were obtained. COMPARISON: None FINDINGS: Refer to intraoperative report for further evaluation. IMPRESSION: Refer to intraoperative report for further evaluation.
[2024-06-05] MEDS: IBUPROFEN 400 MG TAB PO SCH (16:45)
[2024-06-05 16:54] LABS: Potassium 3.6 mmol/L (3.5-5.1); Sodium 141 mmol/L (136-145)
[2024-06-05 16:55] LABS: Anion Gap 8 (5-15); Carbon Dioxide 21 mmol/L (20-31)
[2024-06-05 17:00] LABS: BUN/Creatinine Ratio 19.5 (10.0-20.0); Blood Urea Nitrogen 16 mg/dL (9-23); Glucose 93 mg/dL (74-106)
[2024-06-05 17:01] LABS: Calcium 8.1 mg/dL (8.7-10.4); Chloride 112 mmol/L (98-107)
[2024-06-05] MEDS: HYDROmorphone HCL 2 MG/ML VL/or syr IV PRN (18:10)
[2024-06-05 19:30] VITALS: PULSE 125; RESP 19; O2SAT 93
[2024-06-05 20:00] VITALS: PULSE 112; RESP 18
[2024-06-05] MEDS: ceFAZolin 1GM/50ML 50 ML IV SCH (20:57)
[2024-06-05 21:00] VITALS: BP 150/57; PULSE 125; RESP 19; TEMP 98.4; O2SAT 93
[2024-06-06] VITALS (7 sets, daily range): BP systolic 120–168; BP diastolic 60–104; PULSE 98–132; RESP 18; TEMP 98.4–99.8; O2SAT 90–95
[2024-06-06 07:14] LABS: Basophils # (auto) 0 10 ^3/uL (0-0.2); Basophils % (auto) 0.1 % (0.0-2.0); Eosinophils # (auto) 0 10 ^3/uL (0-0.8); Hematocrit 23.7 % (36.0-46.0); Hemoglobin 7.8 g/dL (12.2-16.2); Lymphocytes # (auto) 0.5 10 ^3/uL (0.4-5.4); Lymphocytes % (auto) 4.8 % (10.0-50.0); Mean Corpuscular Hemoglobin 28.9 pg (28.0-32.0); Mean Corpuscular Hgb Conc. 32.9 g/dL (32.0-36.0); Monocytes # (auto) 1.1 10 ^3/uL (0-1.3); Monocytes % (auto) 9.5 % (0.0-12.0); Neutrophils # (auto) 9.5 10 ^3/uL (1.6-8.6); Neutrophils % (auto) 85.6 % (37.0-80.0); Nucleated Red Blood Cells % 0.1 %; Platelet Count (auto) 205 10^3/uL (140-450); Red Blood Cells 2.69 10^6/uL (4.0-5.20); Red Cell Distribution Width 15.2 % (11.8-14.3); White Blood Cell 11.1 10^3/uL (4.4-10.8)
[2024-06-06 07:16] LABS: Sodium 144 mmol/L (136-145)
[2024-06-06 07:17] LABS: Anion Gap 9 (5-15); Carbon Dioxide 21 mmol/L (20-31)
[2024-06-06 07:22] LABS: BUN/Creatinine Ratio 17.6 (10.0-20.0); Blood Urea Nitrogen 15 mg/dL (9-23); Glucose 93 mg/dL (74-106)
[2024-06-06 07:33] LABS: Calcium 8.2 mg/dL (8.7-10.4); Chloride 114 mmol/L (98-107); Potassium 2.9 mmol/L (3.5-5.1)
--- NOTE | 2024-06-06 07:57 | DVHPN2 ---
Progress Note Date Seen: Jun 06, 2024 Medical Necessity Reason Pt with a Central, PICC or Fol: No Objective vital signs Vital Sign Date Time Temp Pulse Resp B/P (MAP) Pulse Ox O2 Delivery O2 Flow Rate FiO2 06/06/24 06:00 99.3 06/06/24 05:00 114 18 120/60 (80) 90 06/05/24 20:00 Room Air* 0 21 Total Intake and Output 06/05/24 06/05/24 06/06/24 15:00 23:00 07:00 Intake Total 1160 ml 0 ml Output Total 425 ml Balance 1160 ml -425 ml medications Current Medications Medications Dose Ordered Sig/Jude Route Start Time Stop Time Status Last Admin Dose Admin Sodium Chloride 10 ml Q8HR IV 06/05/24 06:00 06/06/24 06:00 10 ML Sodium Chloride 1,000 ml @ 60 mls/hr [id number] IV 06/04/24 22:15 06/05/24 14:55 60 MLS/HR Enoxaparin Sodium 40 mg DAILY SC 06/05/24 10:00 06/05/24 10:32 40 MG Acetaminophen 650 mg Q6HP PRN PO 06/04/24 22:15 Morphine Sulfate 2 mg Q4HPRN PRN IV 06/04/24 22:15 06/05/24 10:03 2 MG Nitroglycerin 0.4 mg Q5MINP PRN SL 06/04/24 22:15 Pantoprazole Sodium 40 mg DAILY IV 06/05/24 10:00 06/05/24 10:32 40 MG Ceftriaxone Sodium 50 ml @ 100 mls/hr DAILY@09 IV 06/06/24 09:00 Ondansetron HCl 4 mg Q6HPRN PRN IV 06/05/24 02:15 06/05/24 10:03 4 MG Cefazolin Sodium 50 ml @ 100 mls/hr Q8H IV 06/05/24 20:45 06/06/24 13:14 06/06/24 04:56 100 MLS/HR Ibuprofen 400 mg Q8HP PO 06/05/24 16:45 laboratory and microbiology Laboratory Tests 06/06/24 05:46 Test 06/06/24 05:46 Range/Units Serum Glucose 93 74-106 mg/dL Problem List/Assessment/Plan Problem List/Assessment/Plan 78 year old female who is s/p ORIF right distal femur POD 1 1. Pain control 2. Toe touch weight bearing only with walker 3. Physical therapy 4. plan to follow up in 2 weeks at [facility] clinic 5. clear for discharge from orthopedics standpoint 6. Dressing to remain clean, dry and intact until first postop visit 7. continue with immobilizer Plan discussed with: Patient Date of Service: Jun 06, 2024 Billing Provider: YE BYNUM MD Common Visit Codes: NOT BILLABLE FLAVIA CORDOVA NP Jun 06, 2024 07:57
[2024-06-06] MEDS: cefTRIAXone 1GM/50ML D5W 50 ML IV SCH (08:46)
[2024-06-06] MEDS ORDERED: MAGNESIUM SULFATE 1GM/100ML 100 ML IV ONE (11:15)
[2024-06-06] MEDS: IBUPROFEN 400 MG TAB PO SCH (12:15)
[2024-06-06] MEDS: ACETAMINOPHEN 325 MG TAB PO SCH (12:15)
[2024-06-06] MEDS: POTASSIUM CHL 20MEQ/100ML 100 ML IV SCH (12:48)
--- NOTE | 2024-06-06 14:24 | DVHPNRES ---
Progress Note Date Seen: Jun 06, 2024 Resident Creating Document: HELENA VERAS RESIDENT Medical Necessity Reason Pt with a Central, PICC or Fol: No Subjective Review of Systems Patient is a 78-year-old female with past medical history of CVA with residual aphasia, TIA, dementia who came in after sustaining a mechanical fall. Patient is AO x2 at baseline with aphasia and is unable to provide accurate history. Per patient's daughter, patient ambulates at baseline, however she has been having a shuffling gait for the last 6 months with minor falls. Yesterday she was visiting a restaurant with her when she fell down to her knees, denies any loss of consciousness, denies hitting her head.. Right femur x-ray showed a comminuted fracture of the distal femur with minimal displacement. Orthopedic surgery was consulted. Past surgical history: Cholecystectomy, gastric bypass surgery Home medications: Vitamins only Past Hospitalization: 2 weeks ago ER visit for chest pain which patient was told was noncardiac Social & Personal history: Patient lives with her . Allergies: Denies Patient seen and examined at bedside. Patient is unable to communicate effectively, review of systems could not be completed accurately. Patient is status post open reduction with internal fixation, postoperative day 1. PT evaluation requested Objective vital signs Vital Sign Date Time Temp Pulse Resp B/P (MAP) Pulse Ox O2 Delivery O2 Flow Rate FiO2 06/06/24 12:49 128 18 168/60 06/06/24 12:37 99.3 94 99.3 06/06/24 08:00 Room Air* 0 21 Total Intake and Output 06/05/24 06/05/24 06/06/24 15:00 23:00 07:00 Intake Total 1160 ml 0 ml Output Total 425 ml Balance 1160 ml -425 ml medications Current Medications Medications Dose Ordered Sig/Jude Route Start Time Stop Time Status Last Admin Dose Admin Sodium Chloride 10 ml Q8HR IV 06/05/24 06:00 06/06/24 06:00 10 ML Sodium Chloride 1,000 ml @ 60 mls/hr [id number] IV 06/04/24 22:15 06/05/24 14:55 60 MLS/HR Enoxaparin Sodium 40 mg DAILY SC 06/05/24 10:00 06/06/24 08:46 40 MG Morphine Sulfate 2 mg Q4HPRN PRN IV 06/04/24 22:15 06/06/24 12:49 2 MG Pantoprazole Sodium 40 mg DAILY IV 06/05/24 10:00 06/06/24 08:46 40 MG Ceftriaxone Sodium 50 ml @ 100 mls/hr DAILY@09 IV 06/06/24 09:00 06/06/24 08:46 100 MLS/HR Ondansetron HCl 4 mg Q6HPRN PRN IV 06/05/24 02:15 06/05/24 10:03 4 MG Potassium Chloride 100 ml @ 50 mls/hr Q2H IV 06/06/24 08:00 06/06/24 13:59 06/06/24 12:48 50 MLS/HR Acetaminophen 650 mg Q8H PO 06/06/24 12:15 Ibuprofen 400 mg Q8H PO 06/06/24 12:15 Acetaminophen/ Hydrocodone Bitart 1 tab Q8HPRN PRN PO 06/06/24 12:15 Examination General Appearance: Well developed. Well nourished. In moderate distress Head Exam: Normal inspection Neck Exam: Normal inspection. Non-tender. Normal alignment Pulmonary/Respiratory: Chest non-tender. Clear bilateral breath sounds, no crackles, no wheezing. Cardiovascular/Chest: Regular rate and rhythm. No murmurs. No JVD. Peripheral Pulses: 2+ Radial (R). 2+ Radial (L). 2+ Pedal (R). 2+ Pedal (L) Abdominal Exam: Normal bowel sounds. Soft. normal abdomen, no visible veins, Nontender. No hepatospenomegaly. No masses Lower extremities: Negative lower extremity edema. Patient is able to move her toes but unable to dorsiflex or plantar flex. Sensations intact. Dressing clean, dry and intact. Neuro/Mental Status: A&O x4. Coherent. Thoughts/Psych: Normal thought pattern. Appropriate mood and affect. Good judgement and insight Skin Exam: Normal inspection. Normal color. Warm. Dry laboratory and microbiology Laboratory Tests 06/06/24 05:46 Test 06/06/24 05:46 Range/Units Serum Glucose 93 74-106 mg/dL Microbiology Date/Time Source Procedure Growth Status 06/04/24 23:56 Voided Urine Urine Culture - Preliminary Resulted Labs and/or images reviewed: Labs reviewed by me, Image(s) reviewed by me Problem List/Assessment/Plan Problem List/Assessment/Plan S/p mechanical fall Comminuted fracture of distal femur with minimal displacement - head CT: No hemorrhage or other acute intracranial abnormality. Microvascular ischemic changes and advanced cerebral volume loss. - femur x-ray: There is a comminuted fracture of the distal femur with minimal displacement. The visualized joint space is well maintained. The alignment is anatomical. There is no radiopaque foreign body. - pelvis x-ray: There is no evidence of acute fracture or dislocation. The visualized joint space is well maintained. The alignment is anatomical. There is no radiopaque foreign body. - CXR: No acute abnormality identified. No significant change compared to the prior chest x-ray from January 2023. - foot x-ray: There is no evidence of acute fracture or dislocation. The visualized joint space is well maintained. The alignment is anatomical. There is no radiopaque foreign body. - orthopedic surgery consulted; patient will likely undergo surgery with metal zoran placement - EKG: Sinus tachycardia. Multiple ventricular premature complexes. Low voltage precordial leads. Borderline T abnormalities. - IV NS at 60 cc/hour - patient is postoperative day 1 s/p open reduction with internal fixation of right distal femur - acetaminophen and ibuprofen scheduled t.i.d. - IV morphine 2 mg q.4 hours as needed for severe pain Acute complicated UTI - IV ceftriaxone Hypokalemia - repleted Aphasia, possibly Wernicke's? Dementia - monitor PUD prophylaxis: protonix 40mg DVT prophylaxis: Levonox 40mg Goals of care: Full code, discussed with patient's daughter for >16 minutes on 06/05/[address] Dozier Plan discussed with: Patient, Other (RN) My Orders My Orders Orders - HELENA VERAS RESIDENT Procedure Category Date Status Time Potassium Chl PHA 06/06/24 In Process 20meq/100ml 08:00 Acetaminophen Tablet PHA 06/06/24 In Process (Tylenol Tablet) 12:15 Ibuprofen Tablet PHA 06/06/24 In Process (Motrin Tablet) 12:15 Hydrocodone-Acet PHA 06/06/24 In Process 5/325mg Tab (Geraldine 12:15 Potassium LAB 06/06/24 Transmitted 14:00 Date of Service: Jun 06, 2024 Billing Provider: PAPITO DOZIER MD Common Visit Codes: [id number] INP/OBS CARE(HIGH) HLEENA VERAS RESIDENT Jun 06, 2024 14:24 PAPITO DOZIER MD Jun 13, 2024 15:17
--- NOTE | 2024-06-06 15:27 | DVHOP2 ---
Operative Report - 2 Report Details Date: 06/05/24 Preop Diagnosis: Displaced Right distal femur fracture Postop Diagnosis: as above Surgeon: Abilio Hammond MD Locomotive Crane Operator Helper: Alexy STANLEY Anesthesiologist: Michael NORMAN Anesthesia: Regional Implant: AOS short distal femur nail, one proximal and three distal locking screws Consent: The patient was informed of the risks and benefits of the procedure. These include but are not limited to complications of anesthesia, postoperative infection, incomplete relief of symptoms, recurrence of symptoms, damage to blood vessels, nerves and tendons, deep venous thrombosis, pulmonary embolism and possible need for repeat surgery in the future. Estimated Blood Loss: 150 cc Name of Procedure Performed 1. Open reduction internal fixation of right distal femur fracture; 2. Intraop fluoro Procedure Details Procedure Details: In the preoperative holding area, the consent was reviewed and the appropriate extremity was verified by the patient and marked with my initials. The patient was then transferred to the operating theatre. Patient was placed on a gale table. Appropriate anesthesia was induced. All bony prominences were well padded. A time out was performed verifying the side and site of surgery according to standard protocol. Preoperative antibiotics were given. The extremity was then prepped and draped in the usual sterile fashion. Using c-arm, the fracture was reduced using traction and a triangle. An incision was made over the patella tendon confirming correct position with c-arm. Patella was disected out and paratenon split. A guide wire was drilled into the distal femur centered A to P. We used the starting reamer to gain entry to the femoral canal. A guide wire was then placed. Patient reamed in increments to 14 mm. We then placed a 260 cm nail. three distal screws were then drilled with the guide. We measured the screw lengths. Using a cannulated drill, we drilled the lateral cortex. The screws were then introduced. Attention was turned proximally. We used the targeting device to drill through the nail and the femur. This was measured using the device, and the screw was placed with good purchase. Final xrays were taken showing the hardware in perfect position. The wound was copiously irrigated. No fractures were seen on the rest of the femur. The fascia was closed with #1 Vicryl, the skin closed #2-0 Vicryl, and cole. A dry sterile dressing was placed on the patient. The patient was transferred to the recovery room in stable condition. Condition Fair Disposition Still a Patient ABILIO HAMMOND MD Jun 06, 2024 15:27
--- NOTE | 2024-06-06 15:33 | DVHINCON2 ---
Date of service: Jun 05, 2024 Reason for Consultation Right distal femur fracture History of Present Illness 78 yo F went to a restaurant with her and had a mechanical fall onto her right leg. At baseline patient has dementia and is starting to have increased shuffling gait per her daughter. Patient uses a walker/cane for balance. After the fall she had immediate pain/swelling/deformity/inability to bear weight on right leg. No cp/sob/abd pain/nausea/vomiting. Past Medical History list reviewed Family History: FH: dementia G8 FATHER Allergies: Coded Allergies: NO KNOWN ALLERGIES (Unverified , 01/27/23) Home Meds No Active Prescriptions or Reported Meds Current Medications Current Medications Medications (Trade) Dose Ordered Sig/Jude Route PRN Reason Start Time Stop Time Status Last Admin Ceftriaxone Sodium 50 ml @ 100 mls/hr DAILY@09 IV 06/06/24 09:00 06/06/24 08:46 Cefazolin Sodium 50 ml @ 100 mls/hr Q8H IV 06/05/24 20:45 06/06/24 08:07 DC 06/06/24 04:56 Ibuprofen (Motrin Tablet) 400 mg Q8HP PO 06/05/24 16:45 06/06/24 12:17 DC Hydromorphone HCl (Dilaudid Injection) 0.5 mg Q10M PRN IV SEVERE PAIN (7-10 PAIN SCALE) 06/05/24 18:00 06/05/24 18:41 DC 06/05/24 18:10 Potassium Chloride 100 ml @ 50 mls/hr Q2H IV 06/06/24 08:00 06/06/24 13:59 DC 06/06/24 14:57 Acetaminophen (Tylenol Tablet) 650 mg Q8H PO 06/06/24 12:15 Ibuprofen (Motrin Tablet) 400 mg Q8H PO 06/06/24 12:15 Acetaminophen/ Hydrocodone Bitart ([place] 5/325MG Tab) 1 tab Q8HPRN PRN PO MODERATE PAIN (4-6 PAIN SCALE) 06/06/24 12:15 Review of Systems limited due to dementia but as per HPI Vital Signs Vital Signs Date Time Temp Pulse Resp B/P (MAP) Pulse Ox O2 Delivery O2 Flow Rate FiO2 06/06/24 12:49 128 18 168/60 06/06/24 12:37 99.3 94 99.3 06/06/24 08:00 Room Air* 0 21 Labs/Diagnostic Data Labs Test 06/06/24 14:12 06/06/24 05:46 06/05/24 03:36 06/04/24 23:56 Range/Units Potassium Level 3.4 L 3.5-5.1 mmol/L White Blood Count 11.1 H 4.4-10.8 10^3/uL Red Blood Count 2.69 L 4.0-5.20 10^6/uL Hemoglobin 7.8 L 12.2-16.2 g/dL Hematocrit 23.7 #L 36.0-46.0 % Mean Corpuscular Volume 88.0 80.0-100.0 fL Mean Corpuscular Hemoglobin 28.9 28.0-32.0 pg Mean Corpuscular Hemoglobin Concent 32.9 32.0-36.0 g/dL Red Cell Distribution Width 15.2 H 11.8-14.3 % Platelet Count 205 140-450 10^3/uL Mean Platelet Volume 9.4 6.9-10.8 fL Neutrophils (%) (Auto) 85.6 H 37.0-80.0 % Lymphocytes (%) (Auto) 4.8 L 10.0-50.0 % Monocytes (%) (Auto) 9.5 0.0-12.0 % Eosinophils (%) (Auto) 0.0 0.0-7.0 % Basophils (%) (Auto) 0.1 0.0-2.0 % Neutrophils # (Auto) 9.5 H 1.6-8.6 10 ^3/uL Lymphocytes # (Auto) 0.5 0.4-5.4 10 ^3/uL Monocytes # (Auto) 1.1 0-1.3 10 ^3/uL Eosinophils # (Auto) 0 0-0.8 10 ^3/uL Basophils # (Auto) 0 0-0.2 10 ^3/uL Nucleated Red Blood Cells 0.1 % Sodium Level 144 136-145 mmol/L Chloride Level 114 H 98-107 mmol/L Carbon Dioxide Level 21 20-31 mmol/L Anion Gap 9 5-15 Blood Urea Nitrogen 15 9-23 mg/dL Creatinine 0.85 0.550-1.02 mg/dL Glomerular Filtration Rate Calc 71 >90 mL/min BUN/Creatinine Ratio 17.6 10.0-20.0 Serum Glucose 93 74-106 mg/dL Calcium Level 8.2 L 8.7-10.4 mg/dL Total Bilirubin 0.6 0.2-1.0 mg/dL Aspartate Amino Transferase (AST) 20 13-40 U/L Alanine Aminotransferase (ALT) 23 7-40 U/L Alkaline Phosphatase 134 H 46-116 U/L Total Protein 5.5 L 5.7-8.2 g/dL Albumin 3.1 L 3.2-4.8 g/dL Free Thyroxine (T4) Calculated 0.84 L 0.89-1.76 ng/dL Total Triiodothyronine (TT3) 1.13 0.60-1.81 ng/mL Urine Color Yellow Yellow Urine Clarity Clear Clear Urine pH 5.5 5.0-9.0 Urine Specific [place] 1.025 1.001-1.035 Urine Protein Trace H Negative Urine Ketones Negative Negative Urine Blood Negative Negative /uL Urine Nitrite 2+ H Negative Urine Bilirubin Negative Negative Urine Urobilinogen Normal Negative mg/dL Urine Leukocyte Esterase Trace Negative /uL Urine RBC 1 0 - 4 /hpf Urine Microscopic WBC 4 0-5 /HPF Urine Squamous Epithelial Cells Few <5 /hpf Urine Bacteria Mod H None Seen /hpf Urine Hyaline Casts Few 0 - 2 /lpf Urine Mucus Few None Seen Urine Glucose Normal Normal mg/dL Urine Opiates Screen Neg NEGATIVE Urine Fentanyl Screen Pos NEGATIVE Urine Barbiturates Screen Neg NEGATIVE Urine Phencyclidine Screen Neg NEGATIVE Urine Amphetamines Screen Neg NEGATIVE Urine Benzodiazepines Screen Neg NEGATIVE Urine Cocaine Screen Neg NEGATIVE Urine Cannabinoids Screen Neg NEGATIVE Test 06/04/24 23:06 06/04/24 22:26 Range/Units Influenza Type A Antigen Negative Negative Influenza Type B Antigen Negative Negative SARS-CoV-2 Antigen (Rapid) Negative NEGATIVE Prothrombin Time 11.0 9.3-11.8 sec Prothrombin Time INR 1.04 0.9-1.15 Activated Partial Thromboplast Time 26.0 24.5-34.5 SEC Hemoglobin A1c 4.1 <5.7 % A1C Lactic Acid Level 1.6 0.4-2.0 mmol/L Magnesium Level 1.9 1.6-2.6 mg/dL Direct Bilirubin 0.4 H <0.3 mg/dL Ammonia 10 L 11-32 umol/L B-Type Natriuretic Peptide 191.40 0-100 pg/mL Thyroid Stimulating Hormone (TSH) 5.31 H 0.55-4.78 uIU/mL Plasma/Serum Blood Alcohol < 3.0 <10 mg/dL Microbiology Date/Time Source Procedure Growth Status 06/04/24 23:56 Voided Urine Urine Culture - Preliminary Resulted Plan/Recommendation 78 yo F sp fall with displaced and comminuted left distal femur fracture 1. I had a long discussion with the patient regarding the plan, the expected outcome, the risks, benefits, and alternatives of surgery. The risks include, but are not limited to, infection (which may require future surgery and removal of implants) , bleeding (which may require a transfusion), damage to nerves, arteries, veins, tendons, muscles and other adjacent structures. Also discussed the possibilities of intraoperative fractures, implant loosening, heterotopic bone formation, and revision for variety of reasons, and medical complications including amputation and etc. This was discussed at length and consent has been obtained. Patients daughter understands the morbidity and mortality of hip fractures in the elderly and wishes to proceed with surgery. 2. Plan for open reduction internal fixation of left distal femur fracture with a femoral nail. 3. NPO/IVF 4. pain control Plan discussed with: Patient, Daughter YE BYNUM MD Jun 06, 2024 15:33
[2024-06-06] MEDS: MAGNESIUM SULFATE 1GM/100ML 100 ML IV ONE (18:54)
[2024-06-06] MEDS: POTASSIUM EFFERVESENT TAB 25 MEQ PO ONE (18:54)
[2024-06-06] MEDS: KETOROLAC TROMETH 30 MG/ML 1ML VIAL IV SCH (21:15)
[2024-06-07] VITALS (10 sets, daily range): BP systolic 129–158; BP diastolic 50–76; PULSE 88–109; RESP 12–18; TEMP 97.5–98.9; O2SAT 92–96
[2024-06-07 07:34] LABS: Anion Gap 8 (5-15); Calcium 8.9 mg/dL (8.7-10.4); Carbon Dioxide 22 mmol/L (20-31); Potassium 4.1 mmol/L (3.5-5.1); Sodium 142 mmol/L (136-145)
[2024-06-07 07:37] LABS: Chloride 112 mmol/L (98-107)
[2024-06-07 07:41] LABS: BUN/Creatinine Ratio 23.4 (10.0-20.0); Blood Urea Nitrogen 22 mg/dL (9-23); Glucose 97 mg/dL (74-106)
[2024-06-07 08:22] LABS: Basophils # (auto) 0 10 ^3/uL (0-0.2); Basophils % (auto) 0.1 % (0.0-2.0); Eosinophils # (auto) 0 10 ^3/uL (0-0.8); Lymphocytes # (auto) 0.4 10 ^3/uL (0.4-5.4); Nucleated Red Blood Cells % 0.1 %
[2024-06-07 08:25] LABS: Hematocrit 20.1 % (36.0-46.0); Lymphocytes % (auto) 4.4 % (10.0-50.0); Mean Corpuscular Hemoglobin 29.6 pg (28.0-32.0); Mean Corpuscular Hgb Conc. 33.2 g/dL (32.0-36.0); Mean Corpuscular Volume 89.2 fL (80.0-100.0); Monocytes # (auto) 0.9 10 ^3/uL (0-1.3); Neutrophils # (auto) 8.2 10 ^3/uL (1.6-8.6); Neutrophils % (auto) 86.5 % (37.0-80.0); Platelet Count (auto) 169 10^3/uL (140-450); Red Blood Cells 2.26 10^6/uL (4.0-5.20); Red Cell Distribution Width 15.7 % (11.8-14.3); White Blood Cell 9.5 10^3/uL (4.4-10.8)
[2024-06-07 08:27] LABS: Hemoglobin 6.7 g/dL (12.2-16.2)
--- NOTE | 2024-06-07 13:42 | DVH ---
Exam: CT CT AB PEL WO CON-NO ORAL OR IV History: dec hb Comparison Study: None available at time of dictation. TECHNIQUE: Multidetector CT of the abdomen was performed from lung bases to pubic symphysis. Imaging was performed without IV contrast. Axial, coronal and sagittal multiplanar reformats were obtained fr om the axial data set by the technologist. Radiation Dose Information: CT Dose: CTDI volume is 15.37 mGy. Dose-length product is 936.62 mGy*cm FINDINGS: Small bilateral pleural effusions with associated atelectasis. Status post cholecystectomy. Liver, spleen, pancreas and adrenal glands unremarkable. kidneys and ureters sre unremarkable. Urinary bladder is decompressed with Plummer catheter in place. Focus of air within the urinary bladder which is most likely iatrogenic. Uterus and adnexa are unrema rkable. Postsurgical changes of the stomach. Small bowel loops are unremarkable. Appendix is unremarkable. Re dundancy of the colon. Large amount of fecal material gas within the nondistended colon with rectal f ecal impaction measuring up to 6.4 cm AP x 7.1 cm transverse diameters. No evidence of intraperitoneal free air or free fluid. No evidence of aortic aneurysm. Moderate atherosclerotic calcification of the aorta and bilateral il iacs. No significant lymphadenopathy. [id number] soft tissue edema. 4.8 x 2.4 x 4.5 cm fatty lesion over the right posterolateral upp er abdominal subcutaneous fat with internal punctate focus of calcification and minimal internal stra nding. No destructive osseous lesions are noted. Chronic fracture of left posterolateral 9th rib. IMPRESSION: Limited noncontrast imaging. Large amount of fecal material and gas within the colon with redundancy of the colon and rectal fecal impaction. Small bilateral pleural effusions with associated atelectasis. Diffuse anasarca. Additional findings as above.
--- NOTE | 2024-06-07 17:43 | DVHPNRES ---
Progress Note Date Seen: Jun 07, 2024 Resident Creating Document: HELENA VERAS RESIDENT Medical Necessity Reason Pt with a Central, PICC or Fol: No Subjective Review of Systems Patient is a 78-year-old female with past medical history of CVA with residual aphasia, TIA, dementia who came in after sustaining a mechanical fall. Patient is AO x2 at baseline with aphasia and is unable to provide accurate history. Per patient's daughter, patient ambulates at baseline, however she has been having a shuffling gait for the last 6 months with minor falls. Yesterday she was visiting a restaurant with her when she fell down to her knees, denies any loss of consciousness, denies hitting her head.. Right femur x-ray showed a comminuted fracture of the distal femur with minimal displacement. Orthopedic surgery was consulted. Past surgical history: Cholecystectomy, gastric bypass surgery Home medications: Vitamins only Past Hospitalization: 2 weeks ago ER visit for chest pain which patient was told was noncardiac Social & Personal history: Patient lives with her . Allergies: Denies Patient seen and examined at bedside. Patient is unable to communicate effectively, review of systems could not be completed accurately. Patient is status post open reduction with internal fixation, postoperative day 2. Patient is progressing with PT evaluation, pain assessment:Pain appears to be more controlled today. Patient continues to have episodes of confusion and delirium overnight and pulling of her lines. Objective vital signs Vital Sign Date Time Temp Pulse Resp B/P (MAP) Pulse Ox O2 Delivery O2 Flow Rate FiO2 06/07/24 16:36 98.0 101 16 145/61 (89) 92 98.0 06/07/24 08:00 Room Air* 0 21 Total Intake and Output 06/06/24 06/06/24 06/07/24 15:00 23:00 07:00 Intake Total 150 ml 820 ml 200 ml Output Total 400 ml 250 ml Balance 150 ml 420 ml -50 ml medications Current Medications Medications Dose Ordered Sig/Jude Route Start Time Stop Time Status Last Admin Dose Admin Sodium Chloride 10 ml Q8HR IV 06/05/24 06:00 06/07/24 14:02 10 ML Sodium Chloride 1,000 ml @ 60 mls/hr [id number] IV 06/04/24 22:15 06/07/24 09:45 60 MLS/HR Enoxaparin Sodium 40 mg DAILY SC 06/05/24 10:00 06/06/24 08:46 40 MG Morphine Sulfate 2 mg Q4HPRN PRN IV 06/04/24 22:15 06/06/24 12:49 2 MG Pantoprazole Sodium 40 mg DAILY IV 06/05/24 10:00 06/07/24 09:05 40 MG Ceftriaxone Sodium 50 ml @ 100 mls/hr DAILY@09 IV 06/06/24 09:00 06/07/24 09:05 100 MLS/HR Ondansetron HCl 4 mg Q6HPRN PRN IV 06/05/24 02:15 06/05/24 10:03 4 MG Acetaminophen 650 mg Q8H PO 06/06/24 12:15 06/07/24 12:48 650 MG Acetaminophen/ Hydrocodone Bitart 1 tab Q8HPRN PRN PO 06/06/24 12:15 Ketorolac Tromethamine 15 mg TID IV 06/06/24 21:15 06/11/24 21:14 06/07/24 13:58 15 MG Examination General Appearance: Well developed. Well nourished. In moderate distress Head Exam: Normal inspection Neck Exam: Normal inspection. Non-tender. Normal alignment Pulmonary/Respiratory: Chest non-tender. Clear bilateral breath sounds, no crackles, no wheezing. Cardiovascular/Chest: Regular rate and rhythm. No murmurs. No JVD. Peripheral Pulses: 2+ Radial (R). 2+ Radial (L). 2+ Pedal (R). 2+ Pedal (L) Abdominal Exam: Normal bowel sounds. Soft. normal abdomen, no visible veins, Nontender. No hepatospenomegaly. No masses Lower extremities: Negative lower extremity edema. Patient is able to move her toes but unable to dorsiflex or plantar flex. Sensations intact. Dressing clean, dry and intact. Neuro/Mental Status: A&O x4. Coherent. Thoughts/Psych: Normal thought pattern. Appropriate mood and affect. Good judgement and insight Skin Exam: Normal inspection. Normal color. Warm. Dry laboratory and microbiology Laboratory Tests 06/07/24 06:28 Test 06/07/24 06:28 Range/Units Serum Glucose 97 74-106 mg/dL Microbiology Date/Time Source Procedure Growth Status 06/04/24 23:56 Voided Urine Urine Culture - Final Klebsiella pneumoniae Complete Labs and/or images reviewed: Labs reviewed by me, Image(s) reviewed by me Problem List/Assessment/Plan Problem List/Assessment/Plan S/p mechanical fall Comminuted fracture of distal femur with minimal displacement Acute metabolic encephalopathy - head CT: No hemorrhage or other acute intracranial abnormality. Microvascular ischemic changes and advanced cerebral volume loss. - femur x-ray: There is a comminuted fracture of the distal femur with minimal displacement. The visualized joint space is well maintained. The alignment is anatomical. There is no radiopaque foreign body. - pelvis x-ray: There is no evidence of acute fracture or dislocation. The visualized joint space is well maintained. The alignment is anatomical. There is no radiopaque foreign body. - CXR: No acute abnormality identified. No significant change compared to the prior chest x-ray from January 2023. - foot x-ray: There is no evidence of acute fracture or dislocation. The visualized joint space is well maintained. The alignment is anatomical. There is no radiopaque foreign body. - orthopedic surgery consulted; patient will likely undergo surgery with metal zoran placement - EKG: Sinus tachycardia. Multiple ventricular premature complexes. Low voltage precordial leads. Borderline T abnormalities. - IV NS at 60 cc/hour - patient is postoperative day 2 s/p open reduction with internal fixation of right distal femur - IV morphine 2 mg q.4 hours as needed for severe pain - swallow evaluation requested, patient cleared swallow evaluation: Discontinued IV Toradol and started patient on acetaminophen and ibuprofen scheduled t.i.d. Expected precipitous drop in hemoglobin - 1 PRBC transfusion given without any reactions noted Acute complicated UTI - IV ceftriaxone Hypokalemia - repleted Aphasia, possibly Wernicke's? Dementia - monitor PUD prophylaxis: protonix 40mg DVT prophylaxis: Currently holding Goals of care: Full code, discussed with patient's daughter for >16 minutes on 06/05/[address] Dozier Plan discussed with: Patient, Other (RN) My Orders My Orders Orders - HELENA VERAS RESIDENT Procedure Category Date Status Time Ketorolac Injection PHA 06/06/24 In Process (Toradol Injection) 21:15 Ct Ab Pel Wo Con-No CT 06/07/24 Resulted Oral Or Iv 11:51 * Repair Operator CONS 06/07/24 Transmitted Consult * Repair Operator CONS 06/07/24 Transmitted Consult Date of Service: Jun 07, 2024 Billing Provider: PAPITO DOZIER MD Common Visit Codes: [id number] INP/OBS CARE(HIGH) HELENA VERAS RESIDENT Jun 07, 2024 17:43 PAPITO DOZIER MD Jun 13, 2024 15:18
[2024-06-07] MEDS: ACETAMINOPHEN 325 MG TAB PO SCH (19:29)
[2024-06-07] MEDS: IBUPROFEN 400 MG TAB PO SCH (19:30)
[2024-06-08] VITALS (9 sets, daily range): BP systolic 140–170; BP diastolic 54–81; PULSE 100–129; RESP 17–19; TEMP 97.8–98.9; O2SAT 90–97
[2024-06-08 07:04] LABS: Basophils # (auto) 0 10 ^3/uL (0-0.2); Eosinophils # (auto) 0 10 ^3/uL (0-0.8); Monocytes # (auto) 0.5 10 ^3/uL (0-1.3); Nucleated Red Blood Cells % 0.1 %; Platelet Count (auto) 180 10^3/uL (140-450); Red Cell Distribution Width 15.2 % (11.8-14.3)
[2024-06-08 07:06] LABS: Basophils % (auto) 0.2 % (0.0-2.0); Eosinophils % (auto) 0.4 % (0.0-7.0); Hematocrit 23.8 % (36.0-46.0); Hemoglobin 8.1 g/dL (12.2-16.2); Lymphocytes # (auto) 0.5 10 ^3/uL (0.4-5.4); Lymphocytes % (auto) 6.7 % (10.0-50.0); Mean Corpuscular Hemoglobin 29.9 pg (28.0-32.0); Mean Corpuscular Hgb Conc. 34.2 g/dL (32.0-36.0); Mean Corpuscular Volume 87.6 fL (80.0-100.0); Monocytes % (auto) 6.7 % (0.0-12.0); Neutrophils # (auto) 6.3 10 ^3/uL (1.6-8.6); Red Blood Cells 2.72 10^6/uL (4.0-5.20); White Blood Cell 7.3 10^3/uL (4.4-10.8)
[2024-06-08 07:34] LABS: Anion Gap 7 (5-15); Carbon Dioxide 22 mmol/L (20-31); Chloride 111 mmol/L (98-107); Potassium 3.9 mmol/L (3.5-5.1); Sodium 140 mmol/L (136-145)
[2024-06-08 07:40] LABS: Glucose 80 mg/dL (74-106)
[2024-06-08 07:51] LABS: Blood Urea Nitrogen 24 mg/dL (9-23)
--- NOTE | 2024-06-08 12:53 | DVHPNRES ---
Progress Note Date Seen: Jun 08, 2024 Resident Creating Document: HELENA VERAS RESIDENT Medical Necessity Reason Pt with a Central, PICC or Fol: No Subjective Review of Systems Patient is a 78-year-old female with past medical history of CVA with residual aphasia, TIA, dementia who came in after sustaining a mechanical fall. Patient is AO x2 at baseline with aphasia and is unable to provide accurate history. Per patient's daughter, patient ambulates at baseline, however she has been having a shuffling gait for the last 6 months with minor falls. Yesterday she was visiting a restaurant with her when she fell down to her knees, denies any loss of consciousness, denies hitting her head.. Right femur x-ray showed a comminuted fracture of the distal femur with minimal displacement. Orthopedic surgery was consulted. Past surgical history: Cholecystectomy, gastric bypass surgery Home medications: Vitamins only Past Hospitalization: 2 weeks ago ER visit for chest pain which patient was told was noncardiac Social & Personal history: Patient lives with her . Allergies: Denies Patient seen and examined at bedside. Patient is unable to communicate effectively, review of systems could not be completed accurately. Patient is status post open reduction with internal fixation, postoperative day 3. Patient is progressing with PT evaluation, pain assessment:Pain appears to be more controlled today. Objective vital signs Vital Sign Date Time Temp Pulse Resp B/P (MAP) Pulse Ox O2 Delivery O2 Flow Rate FiO2 06/08/24 09:00 97.8 100 19 159/73 (101) 90 97.8 06/08/24 08:00 Room Air* 0 21 Total Intake and Output 06/07/24 06/07/24 06/08/24 15:00 23:00 07:00 Intake Total 1400 ml 900 ml Output Total 250 ml 700 ml Balance 1150 ml 200 ml medications Current Medications Medications Dose Ordered Sig/Jude Route Start Time Stop Time Status Last Admin Dose Admin Sodium Chloride 10 ml Q8HR IV 06/05/24 06:00 06/08/24 06:00 10 ML Enoxaparin Sodium 40 mg DAILY SC 06/05/24 10:00 Hold 06/06/24 08:46 40 MG Morphine Sulfate 2 mg Q4HPRN PRN IV 06/04/24 22:15 06/06/24 12:49 2 MG Ondansetron HCl 4 mg Q6HPRN PRN IV 06/05/24 02:15 06/05/24 10:03 4 MG Acetaminophen/ Hydrocodone Bitart 1 tab Q8HPRN PRN PO 06/06/24 12:15 Acetaminophen 650 mg Q8H PO 06/07/24 19:00 06/08/24 10:40 650 MG Ibuprofen 400 mg Q8H PO 06/07/24 19:00 06/08/24 10:40 400 MG Cephalexin 500 mg BID PO 06/08/24 22:00 Examination General Appearance: Well developed. Well nourished. In moderate distress Head Exam: Normal inspection Neck Exam: Normal inspection. Non-tender. Normal alignment Pulmonary/Respiratory: Chest non-tender. Clear bilateral breath sounds, no crackles, no wheezing. Cardiovascular/Chest: Regular rate and rhythm. No murmurs. No JVD. Peripheral Pulses: 2+ Radial (R). 2+ Radial (L). 2+ Pedal (R). 2+ Pedal (L) Abdominal Exam: Normal bowel sounds. Soft. normal abdomen, no visible veins, Nontender. No hepatospenomegaly. No masses Lower extremities: Negative lower extremity edema. Patient is able to move her toes but unable to dorsiflex or plantar flex. Sensations intact. Dressing clean, dry and intact. Neuro/Mental Status: A&O x4. Coherent. Thoughts/Psych: Normal thought pattern. Appropriate mood and affect. Good judgement and insight Skin Exam: Normal inspection. Normal color. Warm. Dry laboratory and microbiology Laboratory Tests 06/08/24 05:17 Test 06/08/24 05:17 Range/Units Serum Glucose 80 74-106 mg/dL Microbiology Date/Time Source Procedure Growth Status 06/04/24 23:56 Voided Urine Urine Culture - Final Klebsiella pneumoniae Complete Labs and/or images reviewed: Labs reviewed by me, Image(s) reviewed by me Problem List/Assessment/Plan Problem List/Assessment/Plan S/p mechanical fall Comminuted fracture of distal femur with minimal displacement Acute metabolic encephalopathy - head CT: No hemorrhage or other acute intracranial abnormality. Microvascular ischemic changes and advanced cerebral volume loss. - femur x-ray: There is a comminuted fracture of the distal femur with minimal displacement. The visualized joint space is well maintained. The alignment is anatomical. There is no radiopaque foreign body. - pelvis x-ray: There is no evidence of acute fracture or dislocation. The visualized joint space is well maintained. The alignment is anatomical. There is no radiopaque foreign body. - CXR: No acute abnormality identified. No significant change compared to the prior chest x-ray from January 2023. - foot x-ray: There is no evidence of acute fracture or dislocation. The visualized joint space is well maintained. The alignment is anatomical. There is no radiopaque foreign body. - orthopedic surgery consulted; patient will likely undergo surgery with metal zoran placement - EKG: Sinus tachycardia. Multiple ventricular premature complexes. Low voltage precordial leads. Borderline T abnormalities. - patient is postoperative day 2 s/p open reduction with internal fixation of right distal femur - acetaminophen and Motrin scheduled Q 8 hours - swallow evaluation requested, patient cleared swallow evaluation: Discontinued IV Toradol and started patient on acetaminophen and ibuprofen scheduled t.i.d. - patient is progressing daily with PT, pain has been adequately managed. Currently awaiting SNF placement. Expected precipitous drop in hemoglobin - 1 PRBC transfusion given without any reactions noted Acute complicated UTI - transition to p.o. cephalexin 500 mg Hypokalemia - repleted Aphasia, possibly Wernicke's? Dementia - monitor PUD prophylaxis: protonix 40mg DVT prophylaxis: Currently holding Goals of care: Full code, discussed with patient's daughter for >16 minutes on 06/05/[address] Dozier Plan discussed with: Patient, Other (RN) My Orders My Orders Orders - HELENA VERAS Procedure Category Date Status Time * [employer] Application Developer CONS 06/07/24 Transmitted Consult * [employer] Application Developer CONS 06/07/24 Transmitted Consult Acetaminophen Tablet PHA 06/07/24 In Process (Tylenol Tablet) 19:00 Ibuprofen Tablet PHA 06/07/24 In Process (Motrin Tablet) 19:00 Cephalexin Capsule PHA 06/08/24 In Process (Keflex Capsule) 22:00 Communication Order ORDERS 06/08/24 Transmitted 11:25 D/C Sitter ORDERS 06/08/24 Transmitted 11:25 Date of Service: Jun 08, 2024 Billing Provider: PAPITO DOZIER MD Common Visit Codes: [id number] INP/OBS CARE(MOD), [id number] INP/OBS CARE(HIGH) HELENA VERAS Jun 08, 2024 12:53 PAPITO DOZIER MD Jun 13, 2024 15:19
[2024-06-08] MEDS: CEPHALEXIN 250 MG CAP PO SCH (21:57)
[2024-06-09 01:00] VITALS: BP 132/76; PULSE 99; RESP 18; TEMP 98.6; O2SAT 94
--- NOTE | 2024-06-09 03:10 | ECG ---
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
[2024-06-09] MEDS: METOPROLOL TARTRATE 25 MG TAB PO ONE (03:12)
[2024-06-09] MEDS: ASPirin 81 mg TAB PO ONE (03:13)
[2024-06-09 07:54] LABS: Basophils # (auto) 0 10 ^3/uL (0-0.2); Basophils % (auto) 0.3 % (0.0-2.0); Eosinophils # (auto) 0.1 10 ^3/uL (0-0.8); Eosinophils % (auto) 1.2 % (0.0-7.0); Hematocrit 26.3 % (36.0-46.0); Hemoglobin 8.7 g/dL (12.2-16.2); Lymphocytes # (auto) 0.4 10 ^3/uL (0.4-5.4); Lymphocytes % (auto) 7.4 % (10.0-50.0); Mean Corpuscular Hemoglobin 28.9 pg (28.0-32.0); Mean Corpuscular Hgb Conc. 33.2 g/dL (32.0-36.0); Mean Corpuscular Volume 87.3 fL (80.0-100.0); Monocytes # (auto) 0.4 10 ^3/uL (0-1.3); Monocytes % (auto) 8.2 % (0.0-12.0); Neutrophils # (auto) 4.4 10 ^3/uL (1.6-8.6); Neutrophils % (auto) 82.9 % (37.0-80.0); Platelet Count (auto) 244 10^3/uL (140-450); Red Blood Cells 3.02 10^6/uL (4.0-5.20); Red Cell Distribution Width 15.1 % (11.8-14.3); White Blood Cell 5.3 10^3/uL (4.4-10.8)
[2024-06-09 08:00] VITALS: PULSE 100
[2024-06-09 08:08] LABS: Anion Gap 5 (5-15); Carbon Dioxide 25 mmol/L (20-31); Sodium 142 mmol/L (136-145)
[2024-06-09 08:09] LABS: Chloride 112 mmol/L (98-107); Potassium 3.3 mmol/L (3.5-5.1)
[2024-06-09 08:10] LABS: Calcium 8.5 mg/dL (8.7-10.4)
[2024-06-09 08:14] LABS: BUN/Creatinine Ratio 25.4 (10.0-20.0); Blood Urea Nitrogen 17 mg/dL (9-23); Glucose 85 mg/dL (74-106)
[2024-06-09 09:00] VITALS: BP 164/91; PULSE 100; RESP 16; TEMP 98.1; O2SAT 95
[2024-06-09] MEDS: PANTOPRAZOLE 40 MG TAB PO ONE (11:30)
[2024-06-09] MEDS: POTASSIUM EFFERVESENT TAB 25 MEQ PO ONE (11:32)
[2024-06-09 13:00] VITALS: BP 140/62; PULSE 104; RESP 17; TEMP 99; O2SAT 95
[2024-06-09] MEDS: CARVEDILOL 3.125 MG TAB PO SCH (13:37)
--- NOTE | 2024-06-09 16:44 | DVHDSRES ---
Discharge Summary Date of Admission Resident Creating Document: HELENA VERAS RESIDENT Jun 04, 2024 at 22:03 Date of Discharge: Jun 09, 2024 Admitting Diagnosis Mechanical fall Labs/Diagnostic Data: Laboratory Results Test 06/09/24 07:36 06/05/24 03:36 06/04/24 23:56 06/04/24 23:06 White Blood Count 5.3 10^3/uL (4.4-10.8) Red Blood Count 3.02 10^6/uL (4.0-5.20) Hemoglobin 8.7 g/dL (12.2-16.2) Hematocrit 26.3 % (36.0-46.0) Mean Corpuscular Volume 87.3 fL (80.0-100.0) Mean Corpuscular Hemoglobin 28.9 pg (28.0-32.0) Mean Corpuscular Hemoglobin Concent 33.2 g/dL (32.0-36.0) Red Cell Distribution Width 15.1 % (11.8-14.3) Platelet Count 244 10^3/uL (140-450) Mean Platelet Volume 8.1 fL (6.9-10.8) Neutrophils (%) (Auto) 82.9 % (37.0-80.0) Lymphocytes (%) (Auto) 7.4 % (10.0-50.0) Monocytes (%) (Auto) 8.2 % (0.0-12.0) Eosinophils (%) (Auto) 1.2 % (0.0-7.0) Basophils (%) (Auto) 0.3 % (0.0-2.0) Neutrophils # (Auto) 4.4 10 ^3/uL (1.6-8.6) Lymphocytes # (Auto) 0.4 10 ^3/uL (0.4-5.4) Monocytes # (Auto) 0.4 10 ^3/uL (0-1.3) Eosinophils # (Auto) 0.1 10 ^3/uL (0-0.8) Basophils # (Auto) 0 10 ^3/uL (0-0.2) Nucleated Red Blood Cells 0.0 % Sodium Level 142 mmol/L (136-145) Potassium Level 3.3 mmol/L (3.5-5.1) Chloride Level 112 mmol/L (98-107) Carbon Dioxide Level 25 mmol/L (20-31) Anion Gap 5 (5-15) Blood Urea Nitrogen 17 mg/dL (9-23) Creatinine 0.67 mg/dL (0.550-1.02) Glomerular Filtration Rate Calc 91 mL/min (>90) BUN/Creatinine Ratio 25.4 (10.0-20.0) Serum Glucose 85 mg/dL (74-106) Calcium Level 8.5 mg/dL (8.7-10.4) Total Bilirubin 0.6 mg/dL (0.2-1.0) Aspartate Amino Transferase (AST) 20 U/L (13-40) Alanine Aminotransferase (ALT) 23 U/L (7-40) Alkaline Phosphatase 134 U/L (46-116) Total Protein 5.5 g/dL (5.7-8.2) Albumin 3.1 g/dL (3.2-4.8) Free Thyroxine (T4) Calculated 0.84 ng/dL (0.89-1.76) Total Triiodothyronine (TT3) 1.13 ng/mL (0.60-1.81) Urine Color Yellow (Yellow) Urine Clarity Clear (Clear) Urine pH 5.5 (5.0-9.0) Urine Specific [place] 1.025 (1.001-1.035) Urine Protein Trace (Negative) Urine Ketones Negative (Negative) Urine Blood Negative /uL (Negative) Urine Nitrite 2+ (Negative) Urine Bilirubin Negative (Negative) Urine Urobilinogen Normal mg/dL (Negative) Urine Leukocyte Esterase Trace /uL (Negative) Urine RBC 1 /hpf (0 - 4) Urine Microscopic WBC 4 /HPF (0-5) Urine Squamous Epithelial Cells Few /hpf (<5) Urine Bacteria Mod /hpf (None Seen) Urine Hyaline Casts Few /lpf (0 - 2) Urine Mucus Few (None Seen) Urine Glucose Normal mg/dL (Normal) Urine Opiates Screen Neg (NEGATIVE) Urine Fentanyl Screen Pos (NEGATIVE) Urine Barbiturates Screen Neg (NEGATIVE) Urine Phencyclidine Screen Neg (NEGATIVE) Urine Amphetamines Screen Neg (NEGATIVE) Urine Benzodiazepines Screen Neg (NEGATIVE) Urine Cocaine Screen Neg (NEGATIVE) Urine Cannabinoids Screen Neg (NEGATIVE) Influenza Type A Antigen Negative (Negative) Influenza Type B Antigen Negative (Negative) SARS-CoV-2 Antigen (Rapid) Negative (NEGATIVE) Test 06/04/24 22:26 Prothrombin Time 11.0 sec (9.3-11.8) Prothrombin Time INR 1.04 (0.9-1.15) Activated Partial Thromboplast Time 26.0 SEC (24.5-34.5) Hemoglobin A1c 4.1 % A1C (<5.7) Lactic Acid Level 1.6 mmol/L (0.4-2.0) Magnesium Level 1.9 mg/dL (1.6-2.6) Direct Bilirubin 0.4 mg/dL (<0.3) Ammonia 10 umol/L (11-32) B-Type Natriuretic Peptide 191.40 pg/mL (0-100) Thyroid Stimulating Hormone (TSH) 5.31 uIU/mL (0.55-4.78) Plasma/Serum Blood Alcohol < 3.0 mg/dL (<10) Other Laboratory Tests 06/09/24 07:36 Brief Hx & Hospital Course: Patient is a 78-year-old female with past medical history of CVA with residual aphasia, TIA, dementia who came in after sustaining a mechanical fall. Patient is AO x2 at baseline with aphasia and is unable to provide accurate history. Per patient's daughter, patient ambulates at baseline, however she has been having a shuffling gait for the last 6 months with minor falls. Yesterday she was visiting a restaurant with her when she fell down to her knees, denies any loss of consciousness, denies hitting her head.. Right femur x-ray showed a comminuted fracture of the distal femur with minimal displacement. Orthopedic surgery was consulted. Hospital course: Head CT showed no hemorrhage or other acute intracranial abnormality. Microvascular ischemic changes and advanced cerebral volume loss. Pelvic x-ray showed no evidence of acute fracture or dislocation. The visualized joint spaces well-maintained. The alignment is anatomical and no radiopaque foreign body noted. Chest x-ray showed no acute abnormality. Foot x-ray showed no evidence of acute fracture or dislocation. Orthopedic surgery recommended patient to undergo open reduction internal fixation with metal zoran placement. Patient was initially noted to have multiple ventricular premature complexes and borderline T abnormalities, later in the course of hospitalization patient started showing atrial fibrillation which was confirmed on a 12 lead EKG. Patient was maintained on Eliquis 2.5 mg b.i.d. along with carvedilol 3.125 mg b.i.d.. Swallow evaluation was completed patient was cleared. Pain was managed with scheduled acetaminophen and Motrin 3 times a day along with IV morphine for breakthrough pain. PT evaluation was requested and patient progressed with physical therapy during the course of her hospitalization. Patient was noted to have an expected precipitous drop in her hemoglobin which was addressed with 1 PRBC transfusion. Her UTI was managed with ceftriaxone which was transitioned to p.o. cephalexin on day 3 of antibiotics. On the day of discharge, patient appeared well and did not exhibit any signs of pain. intermediate facility was arranged for the patient for physical therapy, family stated they will transport the patient. Her hospital course was uncomplicated. General Appearance: Well developed. Well nourished. In moderate distress Head Exam: Normal inspection Neck Exam: Normal inspection. Non-tender. Normal alignment Pulmonary/Respiratory: Chest non-tender. Clear bilateral breath sounds, no crackles, no wheezing. Cardiovascular/Chest: Regular rate and rhythm. No murmurs. No JVD. Peripheral Pulses: 2+ Radial (R). 2+ Radial (L). 2+ Pedal (R). 2+ Pedal (L) Abdominal Exam: Normal bowel sounds. Soft. normal abdomen, no visible veins, Nontender. No hepatospenomegaly. No masses Lower extremities: Negative lower extremity edema. Patient is able to move her toes but unable to dorsiflex or plantar flex. Sensations intact. Dressing clean, dry and intact. Neuro/Mental Status: A&O x4. Coherent. Thoughts/Psych: Normal thought pattern. Appropriate mood and affect. Good judgement and insight Skin Exam: Normal inspection. Normal color. Warm. Dry Condition at Discharge: Fair Final Diagnosis/Problems List S/p mechanical fall Comminuted fracture of distal femur with minimal displacement Acute metabolic encephalopathy Expected precipitous drop in hemoglobin Acute complicated UTI Hypokalemia Aphasia possibly Wernicke's Dementia Discharge Disposition: Alf Facility Discharge Instruct/Medications Diet: Regular Activity: No Restrictions, As Tolerated Follow Up/Referral: Please follow up with PCP after discharge Please follow up with Orthopedic surgery in the outpatient clinic in 4 weeks Medications: Eliquis 2.5 mg b.i.d. Carvedilol 3.125 mg b.i.d. Cephalexin 500 mg b.i.d. for 3 days [place] 5 as needed for pain Acetaminophen 650 mg 3 times a day scheduled Protonix 40 mg daily Discharge Statement: "Patient was advised to return to the ER or call 911 if any headaches, dizziness, shortness of breath, chest pain, abdominal pain, bleeding, fevers, or worsening of medical condition. Patient was counseled about treatment plan, medications, possible side effects, patientverbalized understanding. All questions were answered to the best of my ability. This discharge took greater then 30 minutes in planning, reviewing documentation, counseling the patient, and discussing with other team members." ASSESSMENT ASSESSMENT Assessment as above Date of Service: Jun 09, 2024 Billing Provider: PAPITO DOZIER MD Common Visit Codes: 27632-AGT/OBS DISCH DAY >30min HELENA VERAS Jun 09, 2024 16:43 PAPITO DOZIER MD Jun 13, 2024 15:20
[2024-06-09 17:00] VITALS: BP 142/78; PULSE 93; RESP 16; TEMP 99.5; O2SAT 92
[2024-06-09 17:07] VITALS: BP 156/62; PULSE 116; TEMP 37.5
[2024-06-09] MEDS: HYDROcodone-ACET 5/325MG TAB PO PRN (17:20)
[2024-06-09] MEDS ORDERED: METOPROLOL TARTRATE 25 MG TAB PO SCH (22:00)
[2024-06-09] MEDS ORDERED: APIXABAN 2.5 MG TAB PO SCH ×2 (22:00)
[2024-06-10] MEDS ORDERED: PANTOPRAZOLE 40 MG TAB PO SCH (06:00)
[2024-06-10] MEDS ORDERED: ASPirin 81 mg TAB PO SCH (10:00)
== END 2024-06-09 19:25 | DRG 480 ==
LOC: ER 16:51 → EDBD 16:51 → OVERFLOW 22:03 → TELE-WESTW 06-05 19:05
PROVIDERS: ADMIT Student in an Organized Health Care Education/Training Program; ATTEND Student in an Organized Health Care Education/Training Program
PROC: 0QSB04Z Reposition Right Lower Femur with Internal Fixation Device, Open Approach (ICD-10-PCS; principal; 2024-06-05 12:52)
PROC: 30233N1 Transfusion of Nonautologous Red Blood Cells into Peripheral Vein, Percutaneous Approach (ICD-10-PCS; 2024-06-07)
DX: S72.351A Displaced comminuted fracture of shaft of right femur, initial encounter for closed fracture (principal); G93.41 Metabolic encephalopathy; N39.0 Urinary tract infection, site not specified; E87.6 Hypokalemia; D64.9 Anemia, unspecified; Z20.822 Contact with and (suspected) exposure to COVID-19; F03.90 Unspecified dementia, unspecified severity, without behavioral disturbance, psychotic disturbance, mood disturbance, and anxiety; S72.491A Other fracture of lower end of right femur, initial encounter for closed fracture; I69.320 Aphasia following cerebral infarction; Z90.49 Acquired absence of other specified parts of digestive tract; Z98.84 Bariatric surgery status; W18.39XA Other fall on same level, initial encounter; Y92.89 Other specified places as the place of occurrence of the external cause; Y93.01 Activity, walking, marching and hiking; Y99.8 Other external cause status
CPT/HCPCS: 36415; 70450; 71045; 72170; 73560; 73620; 74176; 76000; 80048; 80053; 80076; 80307; 80320; 81001; 82140; 83036; 83605; 83735; 83880; 84132; 84439; 84443; 84480; 85025; 85610; 85730; 86850; 86900; 86901; 86920; 87086; 87088; 87186; 87426; 87804; 92610; 93005; 96361; 96374; 96375; 97110; 97163; 97530; C1713; C1769; G0378; J1885; J2250; J2405; J2470; J2704; J3480; J3490